=== PATIENT | female | born 1965 | race Caucasian/White ===

== ENCOUNTER → 2019-05-10 | Outpatient (CLI) | payer BC ==
[2019-05-10 14:30] VITALS: BP 143/71; PULSE 55; TEMP 99; BMI 29.4
--- NOTE | 2019-05-10 14:55 | P.HPBAR ---
Bariatric H&P - History & Physicial H&P Date: 05/10/19 History & Physicial: Visit/CC: ANNUAL F/U, HAVING ISSUES WITH BLOATING AND FOOD GETTING STUCK Patient initial contact: Initial weight: 136.078 kg Initial weight in pounds: 300.00 Height: 5 ft 7 in Initial BMI: 47.0 Last weight: Current weight: 85.275 kg Current weight in pounds: 188.00 Current BMI: 29.4 [place] body weight (based on NIH guidelines): 61.235 kg Excess body weight loss: 67.8% The patient is a 53 year-old F who presents for Bariatric Assessment. HPI: She has a gastric bypass [address] Keller. She was 300 pounds. Lowest weight 142 pounds. She reports left upper quadrant pain. She had an iron infusion. She reports mesh was around her pouch and was removed. She reports bile. Her gallbladder is gone. Food occassiionally gets stuck. She reports trouble. She reports getting a revision in [place], [place]. No further reports of diarrhea. She reports constipation. She Sjogren's now. Hgb A1c 9.4 She was done in [place]. PLAN: 1. Recommend trim technician 2. EGD 3. Labs Past Medical History Past Medical History: Diabetes Mellitus, Deep Vein Thrombosis (DVT), Eye Disorder, GERD/Reflux, Liver Disease, Neurologic Disorder, Pulmonary Embolus (PE), Renal Disease Additional Past Medical History / Comment(s): Low Iron, Low B12, arthritis worse in feet and toes , goiters, nodules on neck, glaucoma bilaterally, bilateral PE 2013, Kidney stones, neuropathy in bilateral feet, torn Right achilles (wears brace), sjogrens Disease History of Any Multi-Drug Resistant Organisms: MRSA Year Discovered:: 2004 MDRO Source:: abdomen Past Surgical History: Bariatric Surgery, Section, Cholecystectomy, Heart Catheterization, Orthopedic Surgery Additional Past Surgical History / Comment(s): RYGB [address] Keller at [facility] (went to gastrectomy 2004 at [facility]), left shoulder, Tubal Ligation, panniculectomy, kidney stones Past Anesthesia/Blood Transfusion Reactions: Previous Problems w/ Anesthesia, Postoperative Nausea & Vomiting (PONV) Past Psychological History: Anxiety Smoking Status: Never smoker Past Alcohol Use History: Rare Past Drug Use History: None Reported Surgical - Exam Vital Signs Temp Pulse BP 99 F 55 L 143/71 05/10/19 14:23 05/10/19 14:23 05/10/19 14:23 Bariatric Checklist Checklist: Plan: Checklist: EGD: 1. Hiatal hernia: 2. H. Pylori: HgbA1c: Vitamin D: Smoking: Never smoker Primary care physician referral: [facility] ([place]) Psychiatry clearance: Cardiology clearance: Sleep study: Diet journal: VTE risk score: VTE risk level: Rehab needs at discharge:
== END ==
LOC: BARWHC3 13:58
PROVIDERS: ATTEND Surgery Plastic and Reconstructive Surgery
DX: R10.11 Right upper quadrant pain (principal); K59.00 Constipation, unspecified; Z98.84 Bariatric surgery status
CPT/HCPCS: 99211

== ENCOUNTER 2019-05-29 09:31 | Day surgery (SDC) | payer BC ==
[2019-05-25 10:18] VITALS: BMI 28.1
--- NOTE | 2019-05-29 06:14 | P.GSHP ---
History of Present Illness H&P Date: 05/29/19 CHIEF COMPLAINT: GERD HISTORY OF PRESENT ILLNESS: The patient is a 53-year-old female who presents reports gastroesophageal reflux disease. Upper endoscopy was offered for further evaluation and management. PAST MEDICAL HISTORY: Please see list. PAST SURGICAL HISTORY: Please see list. MEDICATIONS: Please see list. ALLERGIES: Please see list. SOCIAL HISTORY: No illicit drug use FAMILY HISTORY: No reports of Crohn disease or ulcerative colitis. REVIEW OF ORGAN SYSTEMS: CONSTITUTIONAL: No reports of fevers or chills. GI: Denies any blood in stools or constipation. PHYSICAL EXAM: VITAL SIGNS: Stable GENERAL: Well-developed and pleasant in no acute distress. HEENT: No scleral icterus. Extraocular movements grossly intact. Moist buccal mucosa. NECK: Supple without lymphadenopathy. CHEST: Unlabored respirations. Equal bilateral excursions. CARDIOVASCULAR: Regular rate and rhythm. Distal 2+ pulses. ABDOMEN: Soft, nondistended. MUSCULOSKELETAL: No clubbing, cyanosis, or edema. ASSESSMENT: 1. Gastroesophageal reflux disease PLAN: 1. Recommend proceeding with an upper endoscopy Past Medical History Past Medical History: Diabetes Mellitus, Deep Vein Thrombosis (DVT), Eye Disorder, GERD/Reflux, Liver Disease, Neurologic Disorder, Pulmonary Embolus (PE), Renal Disease Additional Past Medical History / Comment(s): Low Iron-recent iron infusion, Low B12, arthritis worse in feet and toes , goiters, nodules on neck, glaucoma bilaterally, bilateral PE 2013, Kidney stones, neuropathy in bilateral feet, torn Right achilles (wears brace), sjogrens, nausea & dysphagia @times History of Any Multi-Drug Resistant Organisms: MRSA Date of last positivie culture/infection: 2004 MDRO Source:: abdomen Past Surgical History: Bariatric Surgery, Section, Cholecystectomy, Heart Catheterization, Orthopedic Surgery, Tubal Ligation Additional Past Surgical History / Comment(s): RYGB [address] Keller at [facility] (went to gastrectomy 2004 at [facility]), left shoulder, Tubal Ligation, panniculectomy, kidney stones Past Anesthesia/Blood Transfusion Reactions: Previous Problems w/ Anesthesia, Postoperative Nausea & Vomiting (PONV) Additional Past Anesthesia/Blood Transfusion Reaction / Comment(s): sometimes BP gets low w/anesthesia Smoking Status: Never smoker Medications and Allergies Home Medications Medication Instructions Recorded Confirmed Type Bisacodyl [Dulcolax] 10 mg RECTAL HS PRN 02/19/20 03/05/20 History Cholecalciferol [Vitamin D3 (25 3,000 unit PO DAILY 05/10/19 05/25/19 History Mcg = 1000 Iu)] Clobetasol Propionate [Temovate 1 applic TOPICAL DAILY 05/10/19 05/25/19 History 0.05% Cream] Cyanocobalamin/Cobamamide [Vitamin 5,000 mg SL DAILY 05/10/19 05/25/19 History B-12 5,000 Mcg Tab Sl] DULoxetine HCL [Cymbalta] 30 mg PO DAILY 05/10/19 05/25/19 History Estrogens, Conjugated Cream 1 applicator VAGINAL DAILY 05/10/19 05/25/19 History [Premarin Cream] Hydroxychloroquine Sulfate 200 mg PO BID 05/10/19 05/25/19 History [Plaquenil] Insulin Glargine [Lantus] 14 unit SQ HS 05/10/19 05/25/19 History Insulin Glargine [Lantus] 24 units SQ AC-BRKFST 05/10/19 05/25/19 History Methotrexate/Pf [Rasuvo 30 mg/0.6 30 mg SQ WEEKLY 05/10/19 05/25/19 History ml Autoinj] cycloSPORINE [Restasis] 1 applicator BOTH EYES BID 05/10/19 05/25/19 History hydrOXYzine HCL [Atarax] 25 mg PO TID PRN 05/10/19 05/25/19 History Allergies Allergy/AdvReac Type Severity Reaction Status Date / Time acetaminophen Allergy Unknown Verified 05/25/19 10:09 [From Darvocet-N] meperidine HCl [From Demerol] Allergy Unknown Verified 05/25/19 10:09 propoxyphene napsylate Allergy Unknown Verified 05/25/19 10:09 [From Darvocet-N] sulfamethoxazole Allergy Unknown Verified 05/25/19 10:09 [From Bactrim] trimethoprim [From Bactrim] Allergy Unknown Verified 05/25/19 10:09
[~2019-05-29 09:31] MED LIST: LACTATED RINGERS 1,000 ML IV SCH
[2019-05-29 09:57] VITALS: RESP 16; TEMP 97.5
[2019-05-29] MEDS ORDERED: LIDOCAINE 1% (10MG/ML) FOR IV START INTRADERMA ONE (09:58)
[2019-05-29 10:00] LABS: Glucose,Whole Blood 165 mg/dL (75-99)
[2019-05-29] MEDS ORDERED: PROPOFOL 10 MG/ML 20 ML VIAL IV ONE (11:54)
[2019-05-29] MEDS ORDERED: LIDOCAINE 1% INJ 10MG/ML (20 ML MDV) ONE (11:54)
[2019-05-29] MEDS ORDERED: SODIUM CHLORIDE 0.9% 500 ML 500 ML IV ONE ×2 (12:05)
--- NOTE | 2019-05-29 12:21 | P.PCN ---
Date of Procedure: 05/29/19 Description of Procedure: PREOPERATIVE DIAGNOSIS: Dysphagia. s/p Chip-en-y gastric bypass. Nausea with vomiting. Morbid obesity. Diabetes type 2. POSTOPERATIVE DIAGNOSIS: Dysphagia. s/p Chip-en-y esophagojejunostomy Nausea with vomiting. Morbid obesity. Diabetes type 2. Esophageal stricture OPERATION: Esophagojejunoscopy with balloon dilatation from 12 to 20 mm. SURGEON: Kiersten Erickson MD ANESTHESIA: MAC. INDICATIONS: The patient is a 53-year-old female who presents with a history of dysphagia, gastric bypass including nausea and vomiting. Benefits and risks of the procedure were described. Informed consent was obtained. DESCRIPTION: The patient was brought into the endoscopy suite and laid in the left lateral decubitus position. After a timeout was confirmed, the procedure was initiated. An Olympus gastroscope was passed along the posterior oropharynx down to the distal esophagus where the squamocolumnar junction was unremarkable. The jejunum was entered as no evidence of remnant gastric pouch was found. An esophageal stricture of 12 mm was found as the adult gastroscope was 9.5 mm in size. A [employer] balloon dilator was placed through the scope. Final insufflation up to 20 mm was performed with a total of 2 minutes. The scope was advanced up to 60 cm from the incisors into the Chip limb. The mucosa of the esophagojejunal anastomosis was intact. No chronic marginal ulcer was encountered. No full-thickness injury was encountered. The GI tract was desufflated. The patient tolerated the procedure well. FINDINGS: Squamocolumnar junction unremarkable at 37 cm. Stricture of approximately 12 mm encountered. No esophago-jejunal ulceration encountered. Successful balloon dilatation to 20 mm. RECOMMENDATIONS: Recommend omeprazole secondary to history of caustic agents Plan - Discharge Summary Discharge Rx Participant: No New Discharge Prescriptions: New Omeprazole [PriLOSEC] 30 mg PO DAILY #14 cap Continue cycloSPORINE [Restasis] 1 applicator BOTH EYES BID Insulin Glargine [Lantus] 14 unit SQ HS Estrogens, Conjugated Cream [Premarin Cream] 1 applicator VAGINAL DAILY Bisacodyl [Dulcolax] 10 mg RECTAL HS PRN PRN Reason: Constipation hydrOXYzine HCL [Atarax] 25 mg PO TID PRN PRN Reason: Itching Hydroxychloroquine Sulfate [Plaquenil] 200 mg PO BID DULoxetine HCL [Cymbalta] 30 mg PO DAILY Cholecalciferol [Vitamin D3 (25 Mcg = 1000 Iu)] 3,000 unit PO DAILY Cyanocobalamin/Cobamamide [Vitamin B-12 5,000 Mcg Tab Sl] 5,000 mg SL DAILY Clobetasol Propionate [Temovate 0.05% Cream] 1 applic TOPICAL DAILY Methotrexate/Pf [Rasuvo 30 mg/0.6 ml Autoinj] 30 mg SQ WEEKLY Insulin Glargine [Lantus] 24 units SQ AC-BRKFST Discharge Medication List Bisacodyl [Dulcolax] 10 mg RECTAL HS PRN 05/10/19 [History] Cholecalciferol [Vitamin D3 (25 Mcg = 1000 Iu)] 3,000 unit PO DAILY 05/10/19 [History] Clobetasol Propionate [Temovate 0.05% Cream] 1 applic TOPICAL DAILY 05/10/19 [History] Cyanocobalamin/Cobamamide [Vitamin B-12 5,000 Mcg Tab Sl] 5,000 mg SL DAILY 05/10/19 [History] DULoxetine HCL [Cymbalta] 30 mg PO DAILY 05/10/19 [History] Estrogens, Conjugated Cream [Premarin Cream] 1 applicator VAGINAL DAILY 05/10/19 [History] Hydroxychloroquine Sulfate [Plaquenil] 200 mg PO BID 05/10/19 [History] Insulin Glargine [Lantus] 14 unit SQ HS 05/10/19 [History] Insulin Glargine [Lantus] 24 units SQ AC-BRKFST 05/10/19 [History] Methotrexate/Pf [Rasuvo 30 mg/0.6 ml Autoinj] 30 mg SQ WEEKLY 05/10/19 [History] cycloSPORINE [Restasis] 1 applicator BOTH EYES BID 05/10/19 [History] hydrOXYzine HCL [Atarax] 25 mg PO TID PRN 05/10/19 [History] Omeprazole [PriLOSEC] 30 mg PO DAILY #14 cap 05/29/19 [Rx] Follow up [facility]ment(s[facility]Ref[facility] [facility] [place] [place] [facility] [place] [facility] Patient Instructions/Handouts: Esophageal Dilation (DC) Activity/Diet/Wound Care/Special Instructions: Liquid diet today. Regular diet tomorrow. Discharge Disposition: HOME SELF-CARE
[2019-05-29 12:32] VITALS: BP 128/76; PULSE 73
== END 2019-05-29 12:54 | disposition home or self-care (01) ==
LOC: ORWHC2ENDO 09:31
PROVIDERS: ATTEND Surgery Plastic and Reconstructive Surgery
DX: K22.2 Esophageal obstruction (principal); E66.01 Morbid (severe) obesity due to excess calories; Z98.84 Bariatric surgery status; Z86.14 Personal history of Methicillin resistant Staphylococcus aureus infection; Z88.5 Allergy status to narcotic agent; Z88.2 Allergy status to sulfonamides; K21.9 Gastro-esophageal reflux disease without esophagitis; Z86.718 Personal history of other venous thrombosis and embolism; H40.9 Unspecified glaucoma; Z87.19 Personal history of other diseases of the digestive system; Z86.69 Personal history of other diseases of the nervous system and sense organs; Z86.711 Personal history of pulmonary embolism; D50.9 Iron deficiency anemia, unspecified; E53.8 Deficiency of other specified B group vitamins; M19.072 Primary osteoarthritis, left ankle and foot; M19.071 Primary osteoarthritis, right ankle and foot; E04.9 Nontoxic goiter, unspecified; Z87.442 Personal history of urinary calculi; E11.42 Type 2 diabetes mellitus with diabetic polyneuropathy; S86.011D Strain of right Achilles tendon, subsequent encounter; M35.00 Sjogren syndrome, unspecified; Z98.890 Other specified postprocedural states; Z90.49 Acquired absence of other specified parts of digestive tract; Z98.51 Tubal ligation status; Z91.89 Other specified personal risk factors, not elsewhere classified; Z87.898 Personal history of other specified conditions; Z79.899 Other long term (current) drug therapy; Z79.52 Long term (current) use of systemic steroids; Z79.890 Hormone replacement therapy; Z79.4 Long term (current) use of insulin; Z68.28 Body mass index [BMI] 28.0-28.9, adult; X58.XXXD Exposure to other specified factors, subsequent encounter
CPT/HCPCS: 43249; J2001; J2704; C1726

== ENCOUNTER → 2019-05-29 | Outpatient (CLI) | payer BC ==
[2019-05-29 13:36] LABS: Anisocytosis Moderate; HCT 35.5 % (34.0-46.0); HGB 10.9 gm/dL (11.4-16.0); Hypochromasia Moderate; MCH 26.7 pg (25.0-35.0); MCHC 30.8 g/dL (31.0-37.0); MCV 86.7 fL (80.0-100.0); Macrocytosis Slight; Mean Platelet Volume 7.5; Platelet Count 257 k/uL (150-450); RBC 4.09 m/uL (3.80-5.40); RDW 23.6 % (11.5-15.5); WBC 6.1 k/uL (3.8-10.6)
[2019-05-29 13:52] LABS: INR 0.9 (<1.2); Prothrombin Time 9.6 sec (9.0-12.0)
[2019-05-29 13:55] LABS: Partial Thromboplastin Time 20.5 sec (22.0-30.0)
[2019-05-29 20:19] LABS: African American GFR (CKD) 97.6 (60.0-200.0); Albumin 4.4 g/dL (3.80-4.90); Albumin/Globulin Ratio 2.2 (1.60-3.17); Anion Gap 3.4 mmol/L (4.00-12.00); BUN/Creat Ratio 11.25 Ratio (12.00-20.00); Calcium 9.2 mg/dL (8.7-10.3); Carbon Dioxide 27.6 mmol/L (21.6-31.8); Chol/HDL Ratio 2.45; Ferritin 779.4 ng/mL (10.0-291.0); Folate, Serum 17.9 ng/mL; LDL Cholesterol,Calculated 100.2 mg/dL (0.0-131.0); Non-African American GFR(CKD) 84.2 (60.0-200.0); Phosphorus 2.5 mg/dL (2.4-5.1); Potassium 4.2 mmol/L (3.5-5.5); Total Bilirubin 0.4 mg/dL (0.3-1.2); Total Protein 6.4 g/dL (6.2-8.2); VLDL Calculation 18.8 mg/dL (5.00-40.00)
[2019-05-29 20:20] LABS: % Iron Saturation 27.76 (12.00-45.00); Magnesium 1.6 mg/dL (1.5-2.4)
[2019-05-29 21:07] LABS: Hemoglobin A1C 8.5 % (4.0-6.0)
[2019-05-30 11:43] LABS: Zinc, Serum 69 ug/dL (60-130)
[2019-05-31 07:24] LABS: Vitamin A 30 ug/dL (38-106)
[2019-06-01 00:28] LABS: Selenium 86 mcg/L (63-160)
[2019-06-01 07:42] LABS: Vit B1(Thiamine) 60 ug/L (38-122)
== END ==
LOC: LABWHC1 13:13
PROVIDERS: ATTEND Surgery Plastic and Reconstructive Surgery
DX: E66.01 Morbid (severe) obesity due to excess calories (principal); E21.1 Secondary hyperparathyroidism, not elsewhere classified; E89.1 Postprocedural hypoinsulinemia; D50.9 Iron deficiency anemia, unspecified; E44.0 Moderate protein-calorie malnutrition; E55.9 Vitamin D deficiency, unspecified; K74.1 Hepatic sclerosis; N19 Unspecified kidney failure; K50.90 Crohn's disease, unspecified, without complications
CPT/HCPCS: 36415; 80053; 80061; 82306; 82525; 82607; 82728; 82746; 83036; 83540; 83550; 83735; 83970; 84100; 84134; 84255; 84425; 84443; 84590; 84630; 85027; 85610; 85730

== ENCOUNTER → 2020-02-05 | Outpatient (CLI) | payer BC ==
[2020-02-05 14:12] VITALS: BP 94/63; PULSE 92; RESP 20; TEMP 98.6
--- NOTE | 2020-02-05 14:29 | P.PAINCN ---
History of Present Illness - Reason for Consult Consult date: 02/05/20 - History of Present Illness This is a 54-year-old patient referred by Dr. Rolle with a chief complaint of chronic pain in her neck. For that she is a pain for quite some time however it has gotten worse in the last 8 months that she isn't working from home. Pain occasionally radiates into the shoulders left worse than right and she also endorses occasional numbness in her right hand. Pain since the pain can be described as sharp and stabbing but the pain in her hand is mostly numb and tingling. Any sort of lifting or physical activity makes the pain worse and resting makes the pain better. She noticed these today she has a tougher time holding her head up as her neck gets fatigued. Currently her pain is a 5 out of 10, at worse 9 and a 10, specifically 310. In regards to management she has had physical therapy, massage, and seen a chiropractor with no real help. She has tried gabapentin in the past which did not help much. She does have history of rheumatoid arthritis and diabetes. In regards to her rheumatoid arthritis she has taken cyclosporine and methotrexate and hydroxychloroquine, which she said helped with her pain in the past but the past 9 months has not been helpful at all. She does not endorse weakness in her arms at all. . Patient denies adverse drug effects from medications. Patient also denies new-onset weakness, bowel/bladder incontinence, or any other signs or symptoms of cauda equina syndrome. There are no signs of acute intoxication, and no indications of medication diversion or overuse. In addition to above, 13-point review of systems is also negative for chest pain, shortness of breath, changes in vision, changes in hearing, new onset weakness, abdominal pain, diarrhea, extreme fatigue, malaise, fever, skin changes, homicidal or suicidal ideation, or bowel or bladder incontinence. Physical exam: Vital Signs: Reviewed in EMR GENERAL: Well appearing, in no acute distress PSYCH: Mood and affect is appropriate. Awake, alert, and oriented SKIN: Skin color, texture, turgor normal, no rashes or lesions HEENT: Normocephalic, atraumatic. EOM intact CV: No pedal edema RESP: Respirations are unlabored, no audible wheezing GI: Abdomen non-distended MUSCULOSKELETAL: Bilateral upper and lower extremity strength is normal and symmetric. No atrophy or tone abnormalities are noted. Neck: Trigger points present over paraspinous muscles. Spurling negative, Axial Loading Test positive bilaterally, Reyes's sign negative. There is pain with neck flexion, extension, or lateral flexion. No obvious deformity or signs of trauma. Normal cervical lordotic curve and normal cervical spine range of motion Extremities: Peripheral joint ROM is full and pain free without obvious instability or laxity in all four extremities. No edema or skin discolorations noted. Gait: Gait is normal NEUR: Bilateral upper and lower extremity coordination and muscle stretch reflexes are physiologic and symmetric. Negative clonus. No loss of sensation is noted. Cranial nerves are grossly intact. Imaging: Cervical MRI 12/2019 C2 through C3: No disc bulge. Minimal left facet arthropathy. No neural foraminal or spinal canal stenosis. C3-C4 tiny central canal protrusion minimally flattening spinal cord. Borderline spinal canal dimensions without stenosis. C4-C5 small central disc protrusion abuts the spinal cord at its ventral aspect without deformity. Borderline spinal canal dimensions without stenosis. Mild facet arthropathy. C5-C6 mild to moderate broad-based disc and osteophyte complex eccentric to the right. This abuts the spinal cord at its right ventral aspect without deformity. Mild ligamentum flavum hypertrophy. The result is mild spinal canal stenosis at this level. Mild to moderate right and mild left uncovertebral joint hypertrophy. C6-C7 and C7-T1 are normal. Assessment: 1. Cervical radiculopathy 2. Myofascial pain Plan: 1. Explanation: Diagnoses, prognoses, and multiple treatment options including but not limited to physical therapy, interventional therapies, medication management and surgery were discussed with the patient and all questions were answered to the patient's satisfaction. 2. Investigations: none 3. Counseling: The patient was counseled for 3 minutes on EXERCISE. Specifically, the patient was instructed regarding the importance of exercise in the context of both chronic pain and overall health. 4. Procedures: C7-T1 ILESI with left cervical trigger point injections. If these are not helpful Dr Rolle will consider ACDF 5. Consultations: None 6. Medications: None 7. Disposition: For procedure Past Medical History Past Medical History: Diabetes Mellitus, Deep Vein Thrombosis (DVT), Eye Disorder, GERD/Reflux, Liver Disease, Neurologic Disorder, Osteoarthritis (OA), Pulmonary Embolus (PE), Renal Disease, Rheumatoid Arthritis (RA) Additional Past Medical History / Comment(s): Low Iron-recent iron infusion, Low B12, arthritis worse in feet and toes, goiters, nodules on neck, glaucoma bilaterally, bilateral PE 2013, Kidney stones, neuropathy in bilateral feet, torn Right achilles, sjogrens, nausea & dysphagia @times History of Any Multi-Drug Resistant Organisms: MRSA Year Discovered:: 2004 MDRO Source:: abdomen incision Past Surgical History: Bariatric Surgery, Section, Cholecystectomy, Heart Catheterization, Orthopedic Surgery, Tubal Ligation Additional Past Surgical History / Comment(s): RYGB [address] Keller at [facility] (went to gastrectomy 2004 at [facility]), left shoulder, Tubal Ligation, panniculectomy, lithotripsy, and sx for kidney stones Past Anesthesia/Blood Transfusion Reactions: Previous Problems w/ Anesthesia, Postoperative Nausea & Vomiting (PONV) Additional Past Anesthesia/Blood Transfusion Reaction / Comm: sometimes BP gets low w/anesthesia Smoking Status: Never smoker Medications and Allergies Home Medications Medication Instructions Recorded Confirmed Type Cholecalciferol [Vitamin D3 (25 3,000 unit PO DAILY 05/10/19 02/02/20 History Mcg = 1000 Iu)] Clobetasol Propionate [Temovate 1 applic TOPICAL DAILY 05/10/19 02/02/20 History 0.05% Cream] Cyanocobalamin/Cobamamide [Vitamin 5,000 mg SL DAILY 05/10/19 02/02/20 History B-12 5,000 Mcg Tab Sl] DULoxetine HCL [Cymbalta] 30 mg PO DAILY 05/10/19 02/02/20 History Estrogens, Conjugated Cream 1 applicator VAGINAL DAILY 05/10/19 02/02/20 History [Premarin Cream] Hydroxychloroquine Sulfate 200 mg PO BID 05/10/19 02/02/20 History [Plaquenil] cycloSPORINE [Restasis] 1 applicator BOTH EYES BID 05/10/19 02/02/20 History Aspirin [Adult Low Dose Aspirin EC] 81 mg PO DAILY 02/02/20 02/02/20 History DULoxetine HCL [Cymbalta] 60 mg PO DAILY 02/02/20 02/02/20 History Insulin Aspart (For Pump) [NovoLOG 0.01 unit SQ-PUMP CONTINUOUS 02/02/20 02/02/20 History (For Pump)] Methotrexate 70 mg INJ TH 02/02/20 History Tafluprost/Pf [Zioptan 0.0015% Eye 1 drop BOTH EYES HS 02/02/20 02/02/20 History Drops] Vitamin A 1 tab PO DAILY 02/02/20 History Allergies Allergy/AdvReac Type Severity Reaction Status Date / Time meperidine HCl [From Demerol] Allergy Unknown Verified 02/02/20 15:00 propoxyphene napsylate Allergy Unknown Verified 02/02/20 15:00 [From Darvocet-N] sulfamethoxazole Allergy Rash/Hives Verified 02/02/20 15:00 [From Bactrim] trimethoprim [From Bactrim] Allergy Rash/Hives Verified 02/02/20 15:00 PQRS Measure Charge Sheet PQRS Narrative: Smoking Status Never smoker Pain Intensity [Neck] 8 Scale Used Numeric (1 - 10) Home Medications: Ambulatory Orders Cholecalciferol [Vitamin D3 (25 Mcg = 1000 Iu)] 3,000 unit PO DAILY 05/10/19 Clobetasol Propionate [Temovate 0.05% Cream] 1 applic TOPICAL DAILY 05/10/19 Cyanocobalamin/Cobamamide [Vitamin B-12 5,000 Mcg Tab Sl] 5,000 mg SL DAILY 05/10/19 DULoxetine HCL [Cymbalta] 30 mg PO DAILY 05/10/19 Estrogens, Conjugated Cream [Premarin Cream] 1 applicator VAGINAL DAILY 05/10/19 Hydroxychloroquine Sulfate [Plaquenil] 200 mg PO BID 05/10/19 cycloSPORINE [Restasis] 1 applicator BOTH EYES BID 05/10/19 Aspirin [Adult Low Dose Aspirin EC] 81 mg PO DAILY 02/02/20 DULoxetine HCL [Cymbalta] 60 mg PO DAILY 02/02/20 Insulin Aspart (For Pump) [NovoLOG (For Pump)] 0.01 unit SQ-PUMP CONTINUOUS 02/02/20 Methotrexate 70 mg INJ TH 02/02/20 Tafluprost/Pf [Zioptan 0.0015% Eye Drops] 1 drop BOTH EYES HS 02/02/20 Vitamin A 1 tab PO DAILY 02/02/20
== END | disposition home or self-care (01) ==
LOC: PNWHC3 13:55
PROVIDERS: ATTEND Anesthesiology
DX: M54.12 Radiculopathy, cervical region (principal); M79.18 Myalgia, other site; E11.9 Type 2 diabetes mellitus without complications; K21.9 Gastro-esophageal reflux disease without esophagitis; M06.9 Rheumatoid arthritis, unspecified; I82.409 Acute embolism and thrombosis of unspecified deep veins of unspecified lower extremity; Z79.891 Long term (current) use of opiate analgesic; Z79.899 Other long term (current) drug therapy; Z79.82 Long term (current) use of aspirin; Z79.4 Long term (current) use of insulin; Z88.8 Allergy status to other drugs, medicaments and biological substances; Z88.2 Allergy status to sulfonamides
CPT/HCPCS: 99211

== ENCOUNTER 2020-02-27 12:15 | Day surgery (SDC) | payer BC ==
[2020-02-23 15:59] VITALS: BMI 28.1
[2020-02-27 12:47] VITALS: TEMP 98.2
[2020-02-27] MEDS ORDERED: LIDOCAINE 1% (10MG/ML) FOR IV START INTRADERMA ONE (13:06)
[2020-02-27 13:07] LABS: Glucose,Whole Blood 119 mg/dL (75-99)
[2020-02-27] MEDS ORDERED: IOPAMIDOL M200 10 ML VIAL ONE (13:09)
[2020-02-27] MEDS ORDERED: DEXAMETHASONE SOD PHOSPHATE 10 MG/ML 1 ML VIAL ONE (13:09)
[2020-02-27] MEDS ORDERED: MIDAZOLAM 2 MG/2 ML VIAL ONE (13:09)
[2020-02-27] MEDS ORDERED: ROPIVACAINE 5MG/ML 20ML VIAL ONE (13:09)
[2020-02-27] MEDS ORDERED: IV FLUID CONTINUATION 1,000 ML IV ONE (13:26)
--- NOTE | 2020-02-27 13:26 | P.PCN ---
Date of Procedure: 02/27/20 Surgeon: Giovana Delacruz Pathology: none sent Condition: stable Disposition: PACU Description of Procedure: PROCEDURE 1. Cervical epidural steroid injection under fluoroscopic guidance, C7-T1 in the left paramedian approach. 2. Cervical epidurogram. :3. Trigger point injection in the cervical paravertebral musculature on the left side and left trapezius muscle PREOPERATIVE DIAGNOSIS: Cervical radiculopathy, cervical spondylosis without myelopathy, myofascial pain POSTOPERATIVE DIAGNOSIS: : Same as above ANESTHESIA: Local anesthesia with 1% lidocaine and IV moderate conscious sedation with Versed . EBL 0 PROCEDURE INDICATION: The patient with neck pain and radiculopathy unresponsive to conservative treatment consents for procedure. PROCEDURE DESCRIPTION / TECHNIQUE: The patient was seen and identified in the preoperative area. Risks, benefits, complications, including but not limited to infections ,bleeding , allergic reactions to the medications ,and not complete pain relief, and alternatives were discussed with the patient, the patient agreed to proceed with the procedure and signed the consent. Patient was taken to the OR and time out was completed. The patient was placed in the prone position on the procedure table. A pillow was placed under the patients chest to increase the flexion of the cervical spine . The cervical area was prepped and draped in the usual sterile fashion. Vital signs were closely monitored during the procedure. Conscious sedation was used during the procedure to decrease patients anxiety. Using anterior-posterior fluoroscopy, the C7-T1 interlaminar space was identified and the skin over this site was marked and then infiltrated with 1% lidocaine subcutaneously. Subsequently, a 20-gauge 3-1/2-inch Tuohy epidural needle was inserted and advanced toward the epidural space by means of loss of resistance to air technique and guided by AP and lateral fluoroscopy. The needle tip contacted the lamina of T1 vertebra first, then it was walked off bone and into the epidural space using the loss of to air and fluoroscopic guidance to identify the epidural space. The correct needle position in the epidural space was verified with the injection of 1 mL of the water soluble contrast dye Isovue and observing an excellent epidurogram with the epidural spread of the dye, after negative aspiration for blood and CSF and in the a bsence of paresthesias. Again after negative aspiration, a 2 ml mixture containing 10 mg of Decadron and 1 ml of preservative free Normal Saline solution was injected and a washout of epidurogram was seen. Needle was withdrawn intact, skin was cleansed, and bandages were applied. A copy of the needle placement picture was saved to the fluoroscopy machine. I then turned my attention into doing the trigger point injection in the left cervical paravertebral musculature and left trapezius muscle and left rhomboid muscle. I used 1-1/2 inch 25-gauge needle to inject 1 mL of ropivacaine 0.5% at each trigger point with a total of 5 trigger points injected. Patient tolerated procedure well
[2020-02-27 13:29] VITALS: RESP 18
[2020-02-27 13:42] VITALS: BP 111/73; PULSE 72
--- NOTE | 2020-02-27 14:32 | FL ---
Fluoroscopy INDICATION: Pain FINDINGS: Fluoroscopy time: 5 seconds. Images obtained: 1. IMPRESSIONS: 1. Documentation of fluoroscopy.
== END 2020-02-27 13:56 | disposition home or self-care (01) ==
LOC: ORPAIN 12:15
PROVIDERS: ATTEND Anesthesiology
DX: M47.22 Other spondylosis with radiculopathy, cervical region (principal); M79.18 Myalgia, other site; M06.9 Rheumatoid arthritis, unspecified; H40.9 Unspecified glaucoma; E11.9 Type 2 diabetes mellitus without complications; Z88.5 Allergy status to narcotic agent; Z88.2 Allergy status to sulfonamides; Z98.51 Tubal ligation status; Z78.0 Asymptomatic menopausal state; Z79.82 Long term (current) use of aspirin
CPT/HCPCS: 20553; 62321; J2250; J1100; Q9966; J2795

== ENCOUNTER 2020-06-03 18:22 | Emergency (ER) | payer BC ==
[2020-06-03 18:27] VITALS: RESP 18; TEMP 97.6
[2020-06-03] MEDS ORDERED: ONDANSETRON 4 MG/2 ML VIAL IVP STA (19:11)
[2020-06-03] MEDS ORDERED: MORPHINE SULFATE 4 MG/ML SYRINGE IV STA (19:11)
[2020-06-03] MEDS ORDERED: SODIUM CHLORIDE 0.9% 1,000 ML IV STA (19:11)
--- NOTE | 2020-06-03 19:22 | ED ---
Abdominal Pain HPI - General Chief Complaint: Abdominal Pain Stated Complaint: abd pain, swelling Time Seen by Provider: 06/03/20 18:57 Source: patient, RN notes reviewed Mode of arrival: ambulatory Limitations: no limitations - History of Present Illness Initial Comments: Patient is a 54-year-old female that presents to the emergency department complaining of left-sided abdominal pain with some bruising. She noted that she was at [facility] last night to get a food bolus removal from her esophagus. 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 She notes that they removed the food bolus and a computed tomography scan. She was discharged. She noted that today she noted that her left side of her abdomen was a little bit swollen there was a weird bruise-like pattern on her left upper quadrant and she was in significant pain. She'll that she was about 7-8 out of 10 constant with no relief. Patient is also having history of diabetes. She denied any chest pain shortness of breath headache vomiting diarrhea constipation fever fatigue chills. - Related Data Home Medications Medication Instructions Recorded Confirmed Hydroxychloroquine Sulfate 200 mg PO BID 05/10/19 06/03/20 [Plaquenil] cycloSPORINE [Restasis] 1 applicator BOTH EYES BID 05/10/19 06/03/20 DULoxetine HCL [Cymbalta] 60 mg PO DAILY 02/02/20 06/03/20 Insulin Aspart (For Pump) [NovoLOG 0.01 unit SQ-PUMP CONTINUOUS 02/02/20 06/03/20 (For Pump)] Methotrexate 70 mg INJ TH 02/02/20 06/03/20 Tafluprost/Pf [Zioptan 0.0015% Eye 1 drop BOTH EYES HS 02/02/20 06/03/20 Drops] Folic Acid 1 mg PO DAILY 02/23/20 06/03/20 Cevimeline [Evoxac] 30 mg PO DAILY 06/03/20 06/03/20 Cyanocobalamin (Vitamin B-12) 1,000 mcg PO DAILY 06/03/20 06/03/20 [Vitamin B-12] Allergies Allergy/AdvReac Type Severity Reaction Status Date / Time meperidine HCl [From Demerol] Allergy Unknown Verified 06/03/20 20:10 propoxyphene napsylate Allergy Unknown Verified 06/03/20 20:10 [From Darvocet-N] sulfamethoxazole Allergy Rash/Hives Verified 06/03/20 20:10 [From Bactrim] trimethoprim [From Bactrim] Allergy Rash/Hives Verified 06/03/20 20:10 Review of Systems ROS Statement: Those systems with pertinent positive or pertinent negative responses have been documented in the HPI. ROS Other: All systems not noted in ROS Statement are negative. Past Medical History Past Medical History: Diabetes Mellitus, Deep Vein Thrombosis (DVT), Eye Disorder, GERD/Reflux, Liver Disease, Neurologic Disorder, Osteoarthritis (OA), Pulmonary Embolus (PE), Renal Disease, Rheumatoid Arthritis (RA) Additional Past Medical History / Comment(s): Low Iron-recent iron infusion, Low B12, arthritis worse in feet and toes, goiters, nodules on neck, glaucoma bilaterally, bilateral PE 2013, Kidney stones, neuropathy in bilateral feet, torn Right achilles, sjogrens, nausea & dysphagia @times History of Any Multi-Drug Resistant Organisms: MRSA Date of last positivie culture/infection: 2004 MDRO Source:: abdomen incision Past Surgical History: Bariatric Surgery, Section, Cholecystectomy, Heart Catheterization, Orthopedic Surgery, Tubal Ligation Additional Past Surgical History / Comment(s): RYGB [address] Keller at [facility] (went to gastrectomy 2004 at [facility]), left shoulder, Tubal Ligation, panniculectomy, lithotripsy, and sx for kidney stones Past Anesthesia/Blood Transfusion Reactions: Previous Problems w/ Anesthesia, Postoperative Nausea & Vomiting (PONV) Additional Past Anesthesia/Blood Transfusion Reaction / Comment(s): sometimes BP gets low w/anesthesia Past Psychological History: Anxiety Smoking Status: Never smoker Past Alcohol Use History: None Reported Past Drug Use History: None Reported General Exam Limitations: no limitations General appearance: alert, in no apparent distress Head exam: Present: atraumatic, normocephalic, normal inspection Eye exam: Present: normal appearance, PERRL, EOMI. Absent: scleral icterus, conjunctival injection, periorbital swelling ENT exam: Present: normal exam, mucous membranes moist Neck exam: Present: normal inspection. Absent: tenderness, meningismus, lymphadenopathy Respiratory exam: Present: normal lung sounds bilaterally. Absent: respiratory distress, wheezes, rales, rhonchi, stridor Cardiovascular Exam: Present: regular rate, normal rhythm, normal heart sounds. Absent: systolic murmur, diastolic murmur, rubs, gallop, clicks GI/Abdominal exam: Present: soft, tenderness (Generalized left side), normal bowel sounds, other (Ecchymotic bruise in the left upper quadrant, patient states it is new as of today.). Absent: distended, guarding, rebound, rigid Extremities exam: Present: normal inspection, full ROM, normal capillary refill. Absent: tenderness, pedal edema, joint swelling, calf tenderness Back exam: Present: normal inspection Neurological exam: Present: alert, oriented X3, CN II-XII intact Psychiatric exam: Present: normal affect, normal mood Skin exam: Present: warm, dry, intact, normal color. Absent: rash Course Vital Signs 06/03/20 18:24 Temperature 97.6 F Pulse Rate 60 Respiratory 18 Rate Blood Pressure 154/71 O2 Sat by Pulse 99 Oximetry Medical Decision Making - Medical Decision Making 54-year-old male complaining of left-sided abdominal pain and swelling and bruising. Labs, computed tomography scan of the abdomen and pelvis, 4 mg of morphine, 4 mg Zofran, 1 L normal saline ordered. White blood cells 10.7, rest of labs unremarkable. CT negative for any acute process. Case discussed with Dr. Villanueva, patient discharged home with conservative management. - Lab Data Result diagrams: 06/03/20 20:37 06/03/20 20:37 Lab Results 06/03/20 06/03/20 06/03/20 Range/Units 20:37 20:37 20:37 WBC 10.7 H (3.8-10.6) k/uL RBC 4.68 (3.80-5.40) m/uL Hgb 14.5 (11.4-16.0) gm/dL Hct 43.9 (34.0-46.0) % MCV 93.7 (80.0-100.0) fL MCH 30.9 (25.0-35.0) pg MCHC 33.0 (31.0-37.0) g/dL RDW 13.0 (11.5-15.5) % Plt Count 263 (150-450) k/uL MPV 7.6 Neutrophils % 55 % Lymphocytes % 36 % Monocytes % 6 % Eosinophils % 1 % Basophils % 1 % Neutrophils # 5.9 (1.3-7.7) k/uL Lymphocytes # 3.8 (1.0-4.8) k/uL Monocytes # 0.6 (0-1.0) k/uL Eosinophils # 0.1 (0-0.7) k/uL Basophils # 0.1 (0-0.2) k/uL PT 10.1 (9.0-12.0) sec INR 0.9 (<1.2) APTT 19.9 L (22.0-30.0) sec Sodium 143 (137-145) mmol/L Potassium 3.7 (3.5-5.1) mmol/L Chloride 105 (98-107) mmol/L Carbon Dioxide 29 (22-30) mmol/L Anion Gap 9 mmol/L BUN 14 (7-17) mg/dL Creatinine 0.98 (0.52-1.04) mg/dL Est GFR (CKD-EPI)AfAm 76 (>60 ml/min/1.73 sqM) Est GFR (CKD-EPI)NonAf 66 (>60 ml/min/1.73 sqM) Glucose 149 H (74-99) mg/dL Plasma Lactic Acid Delvis (0.7-2.0) mmol/L Calcium 10.2 (8.4-10.2) mg/dL Total Bilirubin 0.6 (0.2-1.3) mg/dL AST 37 H (14-36) U/L ALT 30 (4-34) U/L Alkaline Phosphatase 155 H (38-126) U/L Total Protein 7.5 (6.3-8.2) g/dL Albumin 4.8 (3.5-5.0) g/dL Amylase 50 (30-110) U/L Lipase 38 (23-300) U/L 06/03/20 Range/Units 20:37 WBC (3.8-10.6) k/uL RBC (3.80-5.40) m/uL Hgb (11.4-16.0) gm/dL Hct (34.0-46.0) % MCV (80.0-100.0) fL MCH (25.0-35.0) pg MCHC (31.0-37.0) g/dL RDW (11.5-15.5) % Plt Count (150-450) k/uL MPV Neutrophils % % Lymphocytes % % Monocytes % % Eosinophils % % Basophils % % Neutrophils # (1.3-7.7) k/uL Lymphocytes # (1.0-4.8) k/uL Monocytes # (0-1.0) k/uL Eosinophils # (0-0.7) k/uL Basophils # (0-0.2) k/uL PT (9.0-12.0) sec INR (<1.2) APTT (22.0-30.0) sec Sodium (137-145) mmol/L Potassium (3.5-5.1) mmol/L Chloride (98-107) mmol/L Carbon Dioxide (22-30) mmol/L Anion Gap mmol/L BUN (7-17) mg/dL Creatinine (0.52-1.04) mg/dL Est GFR (CKD-EPI)AfAm (>60 ml/min/1.73 sqM) Est GFR (CKD-EPI)NonAf (>60 ml/min/1.73 sqM) Glucose (74-99) mg/dL Plasma Lactic Acid Delvis 1.5 (0.7-2.0) mmol/L Calcium (8.4-10.2) mg/dL Total Bilirubin (0.2-1.3) mg/dL AST (14-36) U/L ALT (4-34) U/L Alkaline Phosphatase (38-126) U/L Total Protein (6.3-8.2) g/dL Albumin (3.5-5.0) g/dL Amylase (30-110) U/L Lipase (23-300) U/L - Radiology Data Radiology results: report reviewed, image reviewed CT of the abdomen and pelvis. There is mild fatty infiltration of the liver. No acute abnormality of the abdomen and pelvis. Nonobstructing small renal calculi. Disposition Clinical Impression: Abdominal pain Disposition: HOME SELF-CARE Condition: Stable Instructions (If sedation given, give patient instructions): Abdominal Pain (ED) Additional Instructions: Please return to the Emergency Department if symptoms worsen or any other concerns. Follow-up with primary care in 2-4 days. Monitor left side of abdomen for worsening of bruising. Take [id number] pain medications as needed for symptom control. Is patient prescribed a controlled substance at d/c from ED?: No Referrals: Garth Blackburn MD [Primary Care Provider] - 1-2 days Time of Disposition: 22:42
[2020-06-03 20:52] LABS: Basophils # (A) 0.1 k/uL (0-0.2); Basophils % (A) 1 %; Eosinophils # (A) 0.1 k/uL (0-0.7); Eosinophils % (A) 1 %; HCT 43.9 % (34.0-46.0); HGB 14.5 gm/dL (11.4-16.0); Lymphocytes # (A) 3.8 k/uL (1.0-4.8); Lymphocytes % (A) 36 %; MCH 30.9 pg (25.0-35.0); MCV 93.7 fL (80.0-100.0); Mean Platelet Volume 7.6; Monocytes # (A) 0.6 k/uL (0-1.0); Monocytes % (A) 6 %; Neutrophils # (A) 5.9 k/uL (1.3-7.7); Neutrophils % (A) 55 %; Platelet Count 263 k/uL (150-450); RBC 4.68 m/uL (3.80-5.40); WBC 10.7 k/uL (3.8-10.6)
[2020-06-03 21:03] LABS: Albumin 4.8 g/dL (3.5-5.0); Calcium 10.2 mg/dL (8.4-10.2); Total Bilirubin 0.6 mg/dL (0.2-1.3); Total Protein 7.5 g/dL (6.3-8.2)
[2020-06-03 21:08] LABS: INR 0.9 (<1.2); Potassium 3.7 mmol/L (3.5-5.1); Prothrombin Time 10.1 sec (9.0-12.0)
[2020-06-03 21:16] LABS: Partial Thromboplastin Time 19.9 sec (22.0-30.0)
--- NOTE | 2020-06-03 22:16 | CT ---
EXAMINATION TYPE: CT abdomen pelvis w con DATE OF EXAM: 06/03/2020 COMPARISON: None HISTORY: Abdominal pain CT DLP: 990.7 mGycm Automated exposure control for dose reduction was used. CONTRAST: Performed with IV Contrast, patient injected with 100 mL of Isovue 300. Images obtained from the diaphragm to the floor the pelvis with IV contrast. There is some mild atelectasis at the lung bases. Heart size is normal. There is no pericardial effus ion. There is some fatty infiltration of the liver. Spleen is intact. There is no pancreatic mass. There i s small hiatal hernia. There appears to be clips at the gastroesophageal junction. There is apparent gastric bariatric surgery. The bile ducts are not dilated. There are clips from cholecystectomy. There is no adrenal mass. Kidneys show satisfactory contrast opacification. There is no hydronephrosi s. Ureters are not dilated. There is no retroperitoneal adenopathy. Bladder distends smoothly. There is no inguinal hernia. There is no free fluid in the pelvis. There is 2 mm calculus upper pole left k idney. There is probably 2 mm calculus lateral right kidney. Delayed images show normal renal excretion. Uterus is anteverted. There is no evidence of pelvic mass. There are sutures in the anterior midline abdomen. Appendix is not definitely seen. There is no sign of thickened appendix. There is no mesenteric edema. There is no ascites or free air. There is no sign of a bowel obstructio n. Lumbar vertebra have normal spacing and alignment. Posterior elements are intact. The bony pelvis is intact. The hip joints appear intact. There is no hip dysplasia. IMPRESSION: There is mild fatty infiltration of the liver. No acute abnormality of the abdomen pelvis. Nonobstruc ting small renal calculi.
[2020-06-03 23:02] VITALS: BP 142/70; PULSE 76
== END 2020-06-03 23:02 | disposition home or self-care (01) ==
LOC: EC 18:22
DX: R10.9 Unspecified abdominal pain (principal); F41.9 Anxiety disorder, unspecified; E11.9 Type 2 diabetes mellitus without complications; K21.9 Gastro-esophageal reflux disease without esophagitis; Z86.718 Personal history of other venous thrombosis and embolism; M19.90 Unspecified osteoarthritis, unspecified site
CPT/HCPCS: 36415; 80053; 82150; 83605; 83690; 85025; 85610; 85730; 74177; 99284; 96374; 96375; 96361; J2270; J2405; Q9967

== ENCOUNTER 2022-06-02 11:23 | Observation (INO) | payer BC ==
[2022-06-02] MEDS ORDERED: PANTOPRAZOLE 40 MG/10 ML VIAL IVP STA (13:40)
[2022-06-02] MEDS ORDERED: SODIUM CHLORIDE 0.9% 1,000 ML IV STA (13:40)
--- NOTE | 2022-06-02 13:42 | ED ---
General Adult HPI - General Chief complaint: Abdominal Pain Stated complaint: HARD TIME SWALLOWING Time Seen by Provider: 06/02/22 13:25 Source: patient, RN notes reviewed Mode of arrival: ambulatory Limitations: no limitations - History of Present Illness Initial comments: Patient is a pleasant 56-year-old female presenting to the emergency department with difficulty swallowing. Onset of symptoms was 2 days ago. Patient has had similar symptoms a couple of times previously needing endoscopy secondary to stricture. Patient does have history of gastric bypass surgery [address] Keller. Patient is only able to tolerate minimal water, less than half ounce. Not able to tolerate solid foods. No abdominal pain. - Related Data Home Medications Medication Instructions Recorded Confirmed Hydroxychloroquine Sulfate 200 mg PO BID 05/10/19 06/03/20 [Plaquenil] cycloSPORINE [Restasis] 1 applicator BOTH EYES BID 05/10/19 06/03/20 DULoxetine HCL [Cymbalta] 60 mg PO DAILY 02/02/20 06/03/20 Insulin Aspart (For Pump) [NovoLOG 0.01 unit SQ-PUMP CONTINUOUS 02/02/20 06/03/20 (For Pump)] Methotrexate 70 mg INJ TH 02/02/20 06/03/20 Tafluprost/Pf [Zioptan 0.0015% Eye 1 drop BOTH EYES HS 02/02/20 06/03/20 Drops] Folic Acid 1 mg PO DAILY 02/23/20 06/03/20 Cevimeline [Evoxac] 30 mg PO DAILY 06/03/20 06/03/20 Cyanocobalamin (Vitamin B-12) 1,000 mcg PO DAILY 06/03/20 06/03/20 [Vitamin B-12] Allergies Allergy/AdvReac Type Severity Reaction Status Date / Time meperidine HCl [From Demerol] Allergy Unknown Verified 06/03/20 20:10 propoxyphene napsylate Allergy Unknown Verified 06/03/20 20:10 [From Darvocet-N] sulfamethoxazole Allergy Rash/Hives Verified 06/03/20 20:10 [From Bactrim] trimethoprim [From Bactrim] Allergy Rash/Hives Verified 06/03/20 20:10 Review of Systems ROS Statement: Those systems with pertinent positive or pertinent negative responses have been documented in the HPI. ROS Other: All systems not noted in ROS Statement are negative. Constitutional: Denies: fever Eyes: Denies: eye pain ENT: Denies: ear pain Respiratory: Denies: cough, dyspnea Cardiovascular: Denies: chest pain Endocrine: Denies: fatigue Gastrointestinal: Denies: abdominal pain Genitourinary: Denies: dysuria Musculoskeletal: Denies: arthralgia Skin: Denies: rash Neurological: Denies: weakness Past Medical History Past Medical History: Diabetes Mellitus, Deep Vein Thrombosis (DVT), Eye Disorder, GERD/Reflux, Liver Disease, Neurologic Disorder, Osteoarthritis (OA), Pulmonary Embolus (PE), Renal Disease, Rheumatoid Arthritis (RA) Additional Past Medical History / Comment(s): Low Iron-recent iron infusion, Low B12, arthritis worse in feet and toes, goiters, nodules on neck, glaucoma bilaterally, bilateral PE 2013, Kidney stones, neuropathy in bilateral feet, torn Right achilles, sjogrens, nausea & dysphagia @times History of Any Multi-Drug Resistant Organisms: MRSA Date of last positivie culture/infection: 2004 MDRO Source:: abdomen incision Past Surgical History: Bariatric Surgery, Section, Cholecystectomy, Heart Catheterization, Orthopedic Surgery, Tubal Ligation Additional Past Surgical History / Comment(s): RYGB [address] Keller at [facility] (went to gastrectomy 2004 at [facility]), left shoulder, Tubal Ligation, panniculectomy, lithotripsy, and sx for kidney stones, Past Anesthesia/Blood Transfusion Reactions: Previous Problems w/ Anesthesia, Postoperative Nausea & Vomiting (PONV) Additional Past Anesthesia/Blood Transfusion Reaction / Comment(s): sometimes BP gets low w/anesthesia Past Psychological History: Anxiety Smoking Status: Never smoker Past Alcohol Use History: None Reported Past Drug Use History: None Reported General Exam Limitations: no limitations General appearance: alert, in no apparent distress Head exam: Present: normocephalic Eye exam: Present: normal appearance Neck exam: Present: normal inspection Respiratory exam: Present: normal lung sounds bilaterally Cardiovascular Exam: Present: regular rate, normal rhythm GI/Abdominal exam: Present: soft. Absent: tenderness Extremities exam: Present: normal inspection. Absent: pedal edema, calf tenderness Neurological exam: Present: alert Psychiatric exam: Present: normal affect, normal mood Skin exam: Present: normal color Course Vital Signs 06/02/22 06/02/22 11:48 13:05 Temperature 98.2 F 98.1 F Pulse Rate 102 H 82 Respiratory 18 16 Rate Blood Pressure 132/78 137/78 O2 Sat by Pulse 99 98 Oximetry Medical Decision Making - Medical Decision Making Was pt. sent in by a medical professional or institution ([employer] [employer] [employer], CLUB DIRECTOR, urgent care, hospital, or fpc...) When possible be specific @ -No Did you speak to anyone other than the patient for history (EMS, parent, family, police, friend...)? What history was obtained from this source @ -No Did you review nursing and triage notes (agree or disagree)? Why? @ -I reviewed and agree with nursing and triage notes Were old charts reviewed (outside hosp., previous admission, EMS record, old EKG, old radiological studies, urgent care reports/EKG's, fpc records)? Report findings @ -No old charts were reviewed Differential Diagnosis (chest pain, altered mental status, abdominal pain women, abdominal pain men, vaginal bleeding, weakness, fever, dyspnea, syncope, headache, dizziness, GI bleed, back pain, seizure, CVA, palpatations, mental health)? @ -Differential Abdominal Pain Women: Appendicitis, Cholecystitis, diverticulosis, ischemic bowel, pancreatitis, hepatitis, UTI, gastroenteritis, AAA, incarcerated hernia, bowel obstruction, constipation, inflammatory bowel, hepatitis, peptic ulcer disease, splenic infarction, perforated viscus, vulvitis, ovarian torsion, PID, kidney stone, placenta abruption, this is not meant to be an all-inclusive list EKG interpreted by me (3pts min.). @ -As above X-rays interpreted by me (1pt min.). @ -Chest x-ray and abdominal x-ray revealed nonspecific findings CT interpreted by me (1pt min.). @ -Report reviewed U/S interpreted by me (1pt. min.). @ -None done What testing was considered but not performed or refused? (CT, X-rays, U/S, labs)? Why? @ -None What meds were considered but not given or refused? Why? @ -None Did you discuss the management of the patient with other professionals (professionals i.e. [employer] EDUARDO ال[employer], CLUB DIRECTOR, lab, RT, psych nurse, director of social media marketing, business operations manager, teacher, community liaison officer, insurance case manager)? Give summary @ -No Was smoking cessation discussed for >3mins.? @ -No Was critical care preformed (if so, how long)? @ -No Were there social determinants of health that impacted care today? How? (Homelessness, low income, unemployed, alcoholism, drug addiction, transportation, low edu. Level, literacy, decrease access to med. care, fci, rehab)? @ -No Was there de-escalation of care discussed even if they declined (Discuss DNR or withdrawal of care, Hospice)? DNR status @ -No What co-morbidities impacted this encounter? (DM, HTN, Smoking, COPD, CAD, Cancer, CVA, ARF, Chemo, Hep., AIDS, mental health diagnosis, sleep apnea, morbid obesity)? @ -None Was patient admitted / discharged? Hospital course, mention meds given and route, prescriptions, significant lab abnormalities, going to OR and other pertinent info. @ -Patient reevaluated evaluated without significant change. Case was discussed with Dr. Tadeo who did request computed tomography scan. She will admit patient for scope tomorrow. Undiagnosed new problem with uncertain prognosis? @ -No Drug Therapy requiring intensive monitoring for toxicity (Heparin, Nitro, Insulin, Cardizem)? @ -No Were any procedures done? @ -No Diagnosis/symptom? @ -Esophageal stricture Acute, or Chronic, or Acute on Chronic? @ -acute Uncomplicated (without systemic symptoms) or Complicated (systemic symptoms)? @ -default Side effects of treatment? @ -No Exacerbation, Progression, or Severe Exacerbation? @ -No Poses a threat to life or bodily function? How? (Chest pain, USA, OR, pneumonia, PE, COPD, DKA, ARF, appy, cholecystitis, CVA, Diverticulitis, Homicidal, Suicidal, threat to staff... and all critical care pts) @ -No - Lab Data Result diagrams: 06/02/22 13:46 06/02/22 13:46 Lab Results 06/02/22 06/02/22 06/02/22 Range/Units 13:46 13:46 13:46 WBC 8.1 (3.8-10.6) k/uL RBC 4.99 (3.80-5.40) m/uL Hgb 14.7 (11.4-16.0) gm/dL Hct 44.8 (34.0-46.0) % MCV 89.8 (80.0-100.0) fL MCH 29.4 (25.0-35.0) pg MCHC 32.7 (31.0-37.0) g/dL RDW 13.8 (11.5-15.5) % Plt Count 363 (150-450) k/uL MPV 7.9 Neutrophils % 58 % Lymphocytes % 29 % Monocytes % 7 % Eosinophils % 1 % Basophils % 1 % Neutrophils # 4.7 (1.3-7.7) k/uL Lymphocytes # 2.4 (1.0-4.8) k/uL Monocytes # 0.6 (0-1.0) k/uL Eosinophils # 0.1 (0-0.7) k/uL Basophils # 0.1 (0-0.2) k/uL PT 9.7 (9.0-12.0) sec INR 0.9 (<1.2) APTT 20.6 L (22.0-30.0) sec Sodium 142 (137-145) mmol/L Potassium 4.4 (3.5-5.1) mmol/L Chloride 103 (98-107) mmol/L Carbon Dioxide 27 (22-30) mmol/L Anion Gap 12 mmol/L BUN 10 (7-17) mg/dL Creatinine 0.93 (0.52-1.04) mg/dL Est GFR (CKD-EPI)AfAm 80 (>60 ml/min/1.73 sqM) Est GFR (CKD-EPI)NonAf 69 (>60 ml/min/1.73 sqM) Glucose 130 H (74-99) mg/dL Calcium 9.7 (8.4-10.2) mg/dL Total Bilirubin 0.7 (0.2-1.3) mg/dL AST 34 (14-36) U/L ALT 32 (4-34) U/L Alkaline Phosphatase 147 H (38-126) U/L Total Protein 7.8 (6.3-8.2) g/dL Albumin 4.8 (3.5-5.0) g/dL Amylase 50 (30-110) U/L Lipase 25 (23-300) U/L Disposition Clinical Impression: Esophageal stricture Disposition: ADMITTED IP TO THIS HOSP Is patient prescribed a controlled substance at d/c from ED?: No Referrals: Garth Blackburn MD [Primary Care Provider] - 1-2 days Time of Disposition: 15:49
[2022-06-02 14:05] LABS: Basophils # (A) 0.1 k/uL (0-0.2); Basophils % (A) 1 %; Eosinophils # (A) 0.1 k/uL (0-0.7); Eosinophils % (A) 1 %; HCT 44.8 % (34.0-46.0); HGB 14.7 gm/dL (11.4-16.0); Lymphocytes # (A) 2.4 k/uL (1.0-4.8); Lymphocytes % (A) 29 %; MCH 29.4 pg (25.0-35.0); MCHC 32.7 g/dL (31.0-37.0); MCV 89.8 fL (80.0-100.0); Mean Platelet Volume 7.9; Monocytes # (A) 0.6 k/uL (0-1.0); Monocytes % (A) 7 %; Neutrophils # (A) 4.7 k/uL (1.3-7.7); Neutrophils % (A) 58 %; Platelet Count 363 k/uL (150-450); RBC 4.99 m/uL (3.80-5.40); RDW 13.8 % (11.5-15.5); WBC 8.1 k/uL (3.8-10.6)
--- NOTE | 2022-06-02 14:06 | XR ---
EXAMINATION TYPE: XR chest 2V DATE OF EXAM: 06/02/2022 2:03 PM COMPARISON: None TECHNIQUE: XR chest 2V Frontal and lateral views of the chest. CLINICAL INDICATION:Female, 56 years old with history of abdominal pain; FINDINGS: Lungs/Pleura: There is no evidence of pleural effusion, focal consolidation, or pneumothorax. Pulmonary vascularity: Unremarkable. Heart/mediastinum: Cardiomediastinal silhouette is unremarkable. Musculoskeletal: No acute osseous pathology. Other findings: Surgical clips in the upper abdomen. Anterior abdominal wall sutures. IMPRESSION: No acute cardiopulmonary disease/process.
--- NOTE | 2022-06-02 14:10 | XR ---
EXAMINATION TYPE: XR KUB DATE OF EXAM: 06/02/2022 COMPARISON: CT abdomen and pelvis 06/03/2020 HISTORY: Abdominal pain TECHNIQUE: Upright KUB of the abdomen was obtained with 3 radiographs. FINDINGS: Small bowel demonstrates no evidence for dilatation or air fluid levels. Gas and fecal material is seen in non-distended colon. No convincing evidence for pneumoperitoneum. Cholecystectomy clips in right upper quadrant. No unusual calcifications. Midline surgical clips identified. Bilateral tubal ligation clips. Post surgical changes from Chip-en -Y gastric bypass with suture material identified. The lung bases are clear. The osseous structures are intact. Right abdominal skin surface electronic device. IMPRESSION: 1. Overall nonobstructive bowel gas pattern. 2. Postsurgical changes.
[2022-06-02] MEDS ORDERED: IOPAMIDOL CONTRAST (ORAL USE) VIAL PO PRN (14:17)
[2022-06-02 14:18] LABS: Albumin 4.8 g/dL (3.5-5.0); Calcium 9.7 mg/dL (8.4-10.2); Potassium 4.4 mmol/L (3.5-5.1); Total Bilirubin 0.7 mg/dL (0.2-1.3); Total Protein 7.8 g/dL (6.3-8.2)
[2022-06-02 14:28] LABS: INR 0.9 (<1.2); Prothrombin Time 9.7 sec (9.0-12.0)
[2022-06-02 14:31] LABS: Partial Thromboplastin Time 20.6 sec (22.0-30.0)
--- NOTE | 2022-06-02 15:06 | CT ---
EXAMINATION TYPE: CT ChestAbdPelvis w con CT DLP: 968.2 mGycm, Automated exposure control for dose reduction was used. DATE OF EXAM: 06/02/2022 2:49 PM COMPARISON: 06/03/2020 CT abdomen. CLINICAL INDICATION:Female, 56 years old with history of Bariatric protocol, dysphasia;, Difficulty s wallowing and nausea. Technique: Multiple axial images of the chest, abdomen, and pelvis were obtained. Two-dimensional cor onal and sagittal reconstructions were obtained. Contrast used:100ml mL of Isovue 300 with IV Contrast, Oral contrast used: with Oral Contrast Findings: CHEST: LUNGS/ PLEURA: No focal consolidation, pneumothorax or pleural effusion. AIRWAY: Patent and unremarkable. HEART: Heart is mildly enlarged for size. MEDIASTINUM: No gross evidence of adenopathy. The esophagus demonstrates postsurgical change to the d istal portion. No abnormal soft tissue wall thickening visualized. Small hiatal hernia is present. Re tained in chest and contents and the distal esophagus. VASCULATURE: No aortic aneurysm. MUSCULOSKELETAL: No acute osseous abnormalities. SOFT TISSUES/LYMPH NODES: Unremarkable. LOWER NECK: Right thyroid nodule measuring up to 2.0 cm. ABDOMEN: ABDOMEN LIVER: Diffusely hypoattenuating parenchyma. GALLBLADDER AND BILE DUCTS: Unremarkable. PANCREAS: Lipomatous atrophy changes. SPLEEN: Unremarkable. ADRENAL GLANDS: Unremarkable. KIDNEYS AND URETERS: No evidence of hydronephrosis or renal calculus. The ureters are unremarkable. PELVIS BLADDER: Unremarkable REPRODUCTIVE: Unremarkable. ABDOMEN & PELVIS STOMACH AND BOWEL: No evidence of bowel obstruction. Appendix is normal. Postsurgical changes of the gastric lumen and distal esophagus likely representing Chip-en-Y.. The excluded gastric lumen is deco mpressed. There is retained debris within the distal esophagus as described above PERITONEUM: No evidence of pneumoperitoneum or free fluid. VASCULATURE: No evidence of aortic aneurysm. MUSCULOSKELETAL: No acute osseous abnormalities. Mild disc degeneration changes are present throughou t the thoracolumbar spine. LYMPH NODES: No gross evidence for lymphadenopathy. SOFT TISSUE/ABDOMINAL WALL: Postsurgical changes anterior abdominal wall. IMPRESSION: 1. Postsurgical changes compatible with Chip-en-Y. There is small hiatal hernia with retained ingest ed contents within the distal esophagus. Findings suggestive of gastric reflux versus esophageal dysm otility versus partial obstruction at the cardiac sphincter. 2. Hepatic steatosis.
[2022-06-02] MEDS ORDERED: ONDANSETRON 4 MG/2 ML VIAL IVP PRN (15:49)
[2022-06-02] MEDS ORDERED: NALOXONE 0.4 MG/ML 1 ML VIAL IV PRN (15:49)
[2022-06-02] MEDS ORDERED: ACETAMINOPHEN TAB 325 MG TAB PO PRN (15:49)
[2022-06-02] MEDS: SODIUM CHLORIDE 0.9% 1,000 ML IV SCH (16:04)
[2022-06-02] MEDS ORDERED: HYDROmorphone 1 MG/ML 1 ML SYRINGE IVP STA (17:08)
--- NOTE | 2022-06-02 20:39 | P.GSHP ---
History of Present Illness H&P Date: 06/02/22 CHIEF COMPLAINT: Esophageal obstruction HISTORY OF PRESENT ILLNESS: Vira Trujillo is a 56-year-old female who presents with severe epigastric pain and dysphagia following cornbeef meal since Wednesday, 3 days ago. She is unable to tolerate liquids since event over 2-3 days. She has a personal history of gastric bypass over 20 years ago [place] [address] Keller. She was 300 pounds. Her lowest weight was 142 pounds. She reports food occasionally gets stuck when she eats. She reports getting a revision of her bariatric procedure in [place], [place] including in [place]. She has pre-existing history of esophageal stricture requiring dilation. At her height of 5 feet 7 inches, her ideal weight is 158 pounds. Her highest weight was 300 pounds, BMI 47.1. Her lowest weight was 142 pounds. Today she comes in weighing 170 pounds from 188 pounds, 2 years ago. She has lost 18 pounds in 2 years. Body mass index is down to 26.6. Her lifetime weight loss is 130 pounds. Her percent excess weight loss is 89%. She is 12 pounds overweight. PAST MEDICAL HISTORY: 1. Morbid obesity due to excess calories, BMI 47.1 2. Multiple venothrombolic events including pulmonary embolisms. 3. Uveitis. 4. Gastroesophageal reflux disease. 5. Hearing disorder including deafness. 6. Renal insufficiency. 7. Kidney stones. 8. Vitamin D deficiency. 9. Iron deficiency. 10. Depression. 11. Rheumatoid disease. 12. Neuropathy. 13. Diabetes type 2. 14. Sjogren's disease PAST SURGICAL HISTORY: 1. Chip-en-Y gastric bypass with multiple complications. 2. Gastrectomy secondary to bariatric complications. 3. section. 4. Cholecystectomy. 5. Heart catheterization. 6. Orthopedic procedure. 7. Removal of kidney stones. 8. Tubal ligation. 9. Panniculectomy. MEDICATIONS: Reviewed ALLERGIES: Reviewed SOCIAL HISTORY: Lifelong nontobacco user. FAMILY HISTORY: No reports of gastrointestinal malignancies. No reports of lupus. REVIEW OF SYSTEMS: CONSTITUTIONAL: At her height of 5 feet 7 inches, her ideal weight is 158 pounds. Her highest weight was 300 pounds, BMI 47.1. Her lowest weight was 142 pounds. HEENT: Has troubles with hearing; however, she does have trouble with uveitis secondary to rheumatoid disease. CARDIOVASCULAR: Prior history of pulmonary embolism; however, denies any recent heart attacks. RESPIRATORY: No reports of active obstructive sleep apnea. GASTROINTESTINAL: Reports diarrhea. Also reports possible celiac disease. MUSCULOSKELETAL: Has rheumatoid arthritis. Reports intermittent joint pain including resultant neuropathy. NEURO: No reports of stroke or seizure disorder. Neuropathy of the distal extremities. HEMATOLOGIC: Has a prior history of pulmonary embolus at least four times. She reports as a result of her surgery, she has had at least four blood clots in her lungs. PSYCH: History of depression without suicidal ideation. SKIN: No skin cancer. No panniculitis ENDOCRINE: Has diabetes. No thyroid disorder. PHYSICAL EXAM: VITAL SIGNS: 5 foot 7, 77.11 kg. Body mass index 26.6 GENERAL: Well developed female in no acute distress. HEENT: No scleral icterus. Extraocular movements intact. Pupils equal. NECK: Supple, without lymphadenopathy. CHEST: Nonlabored respirations. Equal bilateral excursions. CARDIOVASCULAR: Regular rate and rhythm. ABDOMEN: Soft, nontender. MUSCULOSKELETAL: No clubbing, cyanosis, or edema. NEURO: No focal or lateralizing signs. PSYCH: Alert and oriented to person, palce, and time SKIN: Well perfused, good skin turgor LABS: Reviewed. Hemoglobin 14.7. WBC normal. STUDIES: CT of the abdomen and pelvis and a pericardial reviewed including chest demonstrates distal esophageal thickness including food impaction with esophageal obstruction. This is my independent interpretation. Features of gastric bypass without free air or small bowel obstruction identified ASSESSMENT: 1. Acute esophageal obstruction due to food impaction 2. Personal history of gastrojejunal obstruction 3. History of gastric bypass with complications Uveitis. 4. Gastroesophageal reflux disease. 5. Hearing disorder including deafness. 6. Renal insufficiency. 7. Kidney stones. 8. Vitamin D deficiency. 9. Iron deficiency. 10. Depression. 11. Rheumatoid disease. 12. Neuropathy. 13. Diabetes type 2. 14. Sjogren's disease 15. Morbid obesity due to excess calories, BMI 47.1, now 26.6 16. Multiple venothrombolic events including pulmonary embolisms. 17. Dehydration PLAN: 1. Patient presents with severe epigastric pain and dysphagia following cornbeef. Recommend IV fluid hydration and EGD with dilation. 2. Recommend EGD with removal of foreign body Past Medical History Past Medical History: Diabetes Mellitus, Deep Vein Thrombosis (DVT), Eye Disorder, GERD/Reflux, Liver Disease, Neurologic Disorder, Osteoarthritis (OA), Pulmonary Embolus (PE), Renal Disease, Rheumatoid Arthritis (RA) Additional Past Medical History / Comment(s): Low Iron-recent iron infusion, Low B12, arthritis worse in feet and toes, goiters, nodules on neck, glaucoma bilaterally, bilateral PE 2013, Kidney stones, neuropathy in bilateral feet, torn Right achilles, sjogrens, nausea & dysphagia @times History of Any Multi-Drug Resistant Organisms: MRSA Date of last positivie culture/infection: 2004 MDRO Source:: abdomen incision Past Surgical History: Bariatric Surgery, Section, Cholecystectomy, Heart Catheterization, Orthopedic Surgery, Tubal Ligation Additional Past Surgical History / Comment(s): RYGB [address] Keller at [facility] (went to gastrectomy 2004 at [facility] [place]), left shoulder, Tubal Ligation, panniculectomy, lithotripsy, and sx for kidney stones, Past Anesthesia/Blood Transfusion Reactions: Previous Problems w/ Anesthesia, Postoperative Nausea & Vomiting (PONV) Additional Past Anesthesia/Blood Transfusion Reaction / Comment(s): sometimes BP gets low w/anesthesia Past Psychological History: Anxiety Smoking Status: Never smoker Past Alcohol Use History: None Reported Past Drug Use History: None Reported Medications and Allergies Home Medications Medication Instructions Recorded Confirmed Type Hydroxychloroquine Sulfate 200 mg PO BID 05/10/19 06/02/22 History [Plaquenil] DULoxetine HCL [Cymbalta] 60 mg PO DAILY 02/02/20 06/02/22 History Insulin Aspart (For Pump) [NovoLOG 0.01 unit SQ-PUMP CONTINUOUS 02/02/20 06/02/22 History (For Pump)] Folic Acid 1 mg PO DAILY 02/23/20 06/02/22 History Cyanocobalamin (Vitamin B-12) 1,000 mcg PO DAILY 06/03/20 06/02/22 History [Vitamin B-12] Ascorbic Acid [Vitamin C] 1,000 mg PO DAILY 06/02/22 06/02/22 History Cholecalciferol [Vitamin D3 (25 150 mcg PO DAILY 06/02/22 06/02/22 History Mcg = 1000 Iu)] Glucagon Emergency Kit 1 mg IM ONCE PRN 06/02/22 06/02/22 History Pyridoxine HCl (Vitamin B6) 100 mg PO DAILY 06/02/22 06/02/22 History [Vitamin B-6] Vitamin A 2,400 mcg PO DAILY 06/02/22 06/02/22 History Allergies Allergy/AdvReac Type Severity Reaction Status Date / Time meperidine HCl [From Demerol] Allergy Unknown Verified 06/02/22 16:16 propoxyphene napsylate Allergy Unknown Verified 06/02/22 16:16 [From Darvocet-N] sulfamethoxazole Allergy Rash/Hives Verified 06/02/22 16:16 [From Bactrim] trimethoprim [From Bactrim] Allergy Rash/Hives Verified 06/02/22 16:16 Surgical - Exam Vital Signs Temp Pulse Resp BP Pulse Ox 98.2 F 102 H 18 132/78 99 06/02/22 11:48 06/02/22 11:48 06/02/22 11:48 06/02/22 11:48 06/02/22 11:48 Results - Labs 06/02/22 13:46 06/02/22 13:46 Abnormal Lab Results - Last 24 Hours (Table) 06/02/22 06/02/22 Range/Units 13:46 13:46 APTT 20.6 L (22.0-30.0) sec Glucose 130 H (74-99) mg/dL Alkaline Phosphatase 147 H (38-126) U/L Diabetes panel 06/02/22 Range/Units 13:46 Sodium 142 (137-145) mmol/L Potassium 4.4 (3.5-5.1) mmol/L Chloride 103 (98-107) mmol/L Carbon Dioxide 27 (22-30) mmol/L BUN 10 (7-17) mg/dL Creatinine 0.93 (0.52-1.04) mg/dL Glucose 130 H (74-99) mg/dL Calcium 9.7 (8.4-10.2) mg/dL AST 34 (14-36) U/L ALT 32 (4-34) U/L Alkaline Phosphatase 147 H (38-126) U/L Total Protein 7.8 (6.3-8.2) g/dL Albumin 4.8 (3.5-5.0) g/dL Calcium panel 06/02/22 Range/Units 13:46 Calcium 9.7 (8.4-10.2) mg/dL Albumin 4.8 (3.5-5.0) g/dL Pituitary panel 06/02/22 Range/Units 13:46 Sodium 142 (137-145) mmol/L Potassium 4.4 (3.5-5.1) mmol/L Chloride 103 (98-107) mmol/L Carbon Dioxide 27 (22-30) mmol/L BUN 10 (7-17) mg/dL Creatinine 0.93 (0.52-1.04) mg/dL Glucose 130 H (74-99) mg/dL Calcium 9.7 (8.4-10.2) mg/dL Adrenal panel 06/02/22 Range/Units 13:46 Sodium 142 (137-145) mmol/L Potassium 4.4 (3.5-5.1) mmol/L Chloride 103 (98-107) mmol/L Carbon Dioxide 27 (22-30) mmol/L BUN 10 (7-17) mg/dL Creatinine 0.93 (0.52-1.04) mg/dL Glucose 130 H (74-99) mg/dL Calcium 9.7 (8.4-10.2) mg/dL Total Bilirubin 0.7 (0.2-1.3) mg/dL AST 34 (14-36) U/L ALT 32 (4-34) U/L Alkaline Phosphatase 147 H (38-126) U/L Total Protein 7.8 (6.3-8.2) g/dL Albumin 4.8 (3.5-5.0) g/dL
[2022-06-02] MEDS ORDERED: ACETAMINOPHEN IV (For NPO) 1,000 MG in EMPTY BAG 1 BAG IVPB PRN (22:08)
[2022-06-02] MEDS ORDERED: HYDROmorphone 1 MG/ML 1 ML SYRINGE IVP PRN (22:08)
[2022-06-02] MEDS ORDERED: DEXTROSE 50% SYRINGE 50 ML IVP PRN ×2 (22:09)
[2022-06-02] MEDS ORDERED: SODIUM CHLORIDE 0.9% 1,000 ML IV ONE (22:11)
[2022-06-02] MEDS ORDERED: Insulin Aspart (For Pump) 100 UNIT/ML VIAL SQ-PUMP SCH (22:15)
[2022-06-03] MEDS: SODIUM CHLORIDE 0.9% 1,000 ML IV SCH ×2 (08:00)
[2022-06-03 08:56] LABS: Glucose,Whole Blood 111 mg/dL (70-110)
[2022-06-03] MEDS ORDERED: PANTOPRAZOLE 40 MG/10 ML VIAL IV SCH (09:00)
[2022-06-03] MEDS ORDERED: LIDOCAINE 2% INJ 20 MG/ML (2 ML VIAL) ONE (10:59)
[2022-06-03] MEDS ORDERED: IV FLUID CONTINUATION 1,000 ML IV ONE ×2 (10:59)
[2022-06-03] MEDS ORDERED: PROPOFOL 10 MG/ML 20 ML VIAL IV ONE (10:59)
[2022-06-03 12:23] LABS: Glucose,Whole Blood 97 mg/dL (70-110)
--- NOTE | 2022-06-03 14:31 | P.DS ---
Providers Date of admission: 06/02/22 15:50 Expected date of discharge: 06/03/22 Attending physician: Kiersten Erickson Primary care physician: Garth Blackburn [facility] Course: Discharge diagnosis 1. Epigastric pain and dysphagia status post EGD with dilation, removal of foreign body and biopsy 2. History of Chip-en-Y gastric bypass surgery Hospital course This is a 56-year-old female who presented to the hospital with complaints of severe epigastric pain and dysphagia after eating corned beef 3 days ago. Computed tomography scan had shown evidence of esophageal obstruction. Patient is status post EGD with dilation, removal of foreign body and biopsy. She is tolerating clear liquid diet. She denies pain. She has been up and ambulating. She is afebrile. She is stable for discharge. Physician Sand Conditioner note has been reviewed by physician. Signing provider agrees with the documented findings, assessment, and plan of care. Patient Condition at Discharge: Stable Plan - Discharge Summary New Discharge Prescriptions: Continue Hydroxychloroquine Sulfate [Plaquenil] 200 mg PO BID Insulin Aspart (For Pump) [NovoLOG (For Pump)] 0.01 unit SQ-PUMP CONTINUOUS DULoxetine HCL [Cymbalta] 60 mg PO DAILY Folic Acid 1 mg PO DAILY Cyanocobalamin (Vitamin B-12) [Vitamin B-12] 1,000 mcg PO DAILY Pyridoxine HCl (Vitamin B6) [Vitamin B-6] 100 mg PO DAILY Cholecalciferol [Vitamin D3 (25 Mcg = 1000 Iu)] 150 mcg PO DAILY Vitamin A 2,400 mcg PO DAILY Ascorbic Acid [Vitamin C] 1,000 mg PO DAILY Glucagon Emergency Kit 1 mg IM ONCE PRN PRN Reason: LOW BLOOD SUGAR Discharge Medication List Hydroxychloroquine Sulfate [Plaquenil] 200 mg PO BID 05/10/19 [History] DULoxetine HCL [Cymbalta] 60 mg PO DAILY 02/02/20 [History] Insulin Aspart (For Pump) [NovoLOG (For Pump)] 0.01 unit SQ-PUMP CONTINUOUS 02/02/20 [History] Folic Acid 1 mg PO DAILY 02/23/20 [History] Cyanocobalamin (Vitamin B-12) [Vitamin B-12] 1,000 mcg PO DAILY 06/03/20 [History] Ascorbic Acid [Vitamin C] 1,000 mg PO DAILY 06/02/22 [History] Cholecalciferol [Vitamin D3 (25 Mcg = 1000 Iu)] 150 mcg PO DAILY 06/02/22 [History] Glucagon Emergency Kit 1 mg IM ONCE PRN 06/02/22 [History] Pyridoxine HCl (Vitamin B6) [Vitamin B-6] 100 mg PO DAILY 06/02/22 [History] Vitamin A 2,400 mcg PO DAILY 06/02/22 [History] Follow up Appointment(s)/Referral(s): Garth Blackburn MD [Primary Care Provider] [facility] [place] [place] [facility] - 06/10/22 Discharge Disposition: HOME SELF-CARE
[2022-06-03 15:31] VITALS: BP 117/63; PULSE 80; RESP 16; TEMP 98.4
--- NOTE | 2022-06-03 22:17 | P.PCN ---
Date of Procedure: 06/03/22 Description of Procedure: PREOPERATIVE DIAGNOSIS: Acute esophageal obstruction due to food impaction Personal history of dysphagia Personal history of gastrojejunal obstruction Personal history gastric bypass Nausea with vomiting. 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 INDICATIONS: The patient is a 56-year-old female who presents with acute esophageal obstruction with food impaction. Benefits and risks of the procedure were described. Informed consent was obtained. DESCRIPTION: The patient was brought into the endoscopy suite and laid in the left lateral decubitus position. After a timeout was confirmed, the procedure was initiated. An Olympus gastroscope was passed along the posterior oropharynx down to the distal esophagus where large food impaction/esophageal mass was found along esophagogastro jejunal anastomosis. Multiple passes using rothnet x 3 were used to retrieve food impaction. The gastric pouch was entered. A esophago-jejunal stricture of 12 mm was found as the adult gastroscope was 9.5 mm in size. Esophageal mass at the anastomosis of 8 mm was identified circumferentially suspicious for chronic inflammation. Biopsies were obtained local forceps. The scope was reentered for balloon dilation of the esophago-gastrojejunal anastomosis. Final insufflation from 12 to 19 mm was performed with a total of 2 minutes. The scope was advanced up to 60 cm from the incisors into the Chip limb. The mucosa of the gastrojejunal anastomosis was intact. No chronic gastrojejunal marginal ulcer was encountered. No full-thickness injury was encountered. The GI tract was desufflated. The patient tolerated the procedure well. FINDINGS: Large food impaction of anastomosis retrieved Stricture of approximately 12 mm encountered. Circumferential 5 mm to 1 cm esophageal mass with biopsies obtained. Balloon dilatation to 19 mm. RECOMMENDATIONS: Recommend liquid diet Recommend omeprazole 40 mg daily Follow-up at the bariatric center.
== END 2022-06-03 15:39 | disposition home or self-care (01) ==
LOC: EC 11:23 → 5NMEDONC 15:50
PROVIDERS: ADMIT Surgery Plastic and Reconstructive Surgery; ATTEND Surgery Plastic and Reconstructive Surgery
DX: K22.2 Esophageal obstruction (principal); Z98.84 Bariatric surgery status; K21.9 Gastro-esophageal reflux disease without esophagitis; E86.0 Dehydration; H91.90 Unspecified hearing loss, unspecified ear; N28.9 Disorder of kidney and ureter, unspecified; Z87.442 Personal history of urinary calculi; E55.9 Vitamin D deficiency, unspecified; E61.1 Iron deficiency; F32.A Depression, unspecified; M06.9 Rheumatoid arthritis, unspecified; E11.40 Type 2 diabetes mellitus with diabetic neuropathy, unspecified; Z96.41 Presence of insulin pump (external) (internal); M35.00 Sjogren syndrome, unspecified; E66.01 Morbid (severe) obesity due to excess calories; Z68.42 Body mass index [BMI] 45.0-49.9, adult; Z86.711 Personal history of pulmonary embolism; M19.90 Unspecified osteoarthritis, unspecified site; H40.9 Unspecified glaucoma; Z86.14 Personal history of Methicillin resistant Staphylococcus aureus infection; Z98.891 History of uterine scar from previous surgery; Z90.49 Acquired absence of other specified parts of digestive tract; Z98.51 Tubal ligation status; Z98.890 Other specified postprocedural states; F41.9 Anxiety disorder, unspecified; Z79.4 Long term (current) use of insulin; Z79.899 Other long term (current) drug therapy; Z88.5 Allergy status to narcotic agent; Z88.2 Allergy status to sulfonamides
CPT/HCPCS: 96376; 96375 ×2; 96361; 96374; 99285; 36415; 88305; 80053; 82150; 83690; 85025; 85610; 85730; 83036; 71046; 74018; 71260; 74177; 43239; 43247; 43249; G0378 ×2; J2405; J1170; J0131; J2704; C9113 ×2; Q9967; J2001; C1726; 44799

== ENCOUNTER → 2022-06-10 | Outpatient (CLI) | payer BC ==
[2022-06-10 15:56] VITALS: BP 138/76; PULSE 85; TEMP 98; BMI 27.2
--- NOTE | 2022-06-10 16:20 | P.HPBAR ---
Bariatric H&P - History & Physicial H&P Date: 06/10/22 History & Physicial: Visit/CC: hospitalization F/U Patient initial contact: Initial weight: 136.078 kg Initial weight in pounds: 300.00 Height: 5 ft 7 in Initial BMI: 47.0 Last weight: Current weight: 78.925 kg Current weight in pounds: 174.00 Current BMI: 27.2 [place] body weight (based on NIH guidelines): 61.235 kg Excess body weight loss: 76.3% The patient is a 56 year-old F who presents for Bariatric Assessment. She had food impaction. Plan for protonix. Getting full labs. Tolerating. She has lost weight. Needs labs. May need repeat EGD Past Medical History Past Medical History: Diabetes Mellitus, Deep Vein Thrombosis (DVT), Eye Disorder, GERD/Reflux, Liver Disease, Neurologic Disorder, Osteoarthritis (OA), Pulmonary Embolus (PE), Renal Disease, Rheumatoid Arthritis (RA) Additional Past Medical History / Comment(s): Low Iron-recent iron infusion, Low B12, arthritis worse in feet and toes, goiters, nodules on neck, glaucoma bilaterally, bilateral PE 2013, Kidney stones, neuropathy in bilateral feet, torn Right achilles, sjogrens, nausea & dysphagia @times History of Any Multi-Drug Resistant Organisms: MRSA Year Discovered:: 2004 MDRO Source:: abdomen incision Past Surgical History: Bariatric Surgery, Section, Cholecystectomy, Heart Catheterization, Orthopedic Surgery, Tubal Ligation Additional Past Surgical History / Comment(s): RYGB [address] Keller at [facility] (went to gastrectomy 2004 at [facility]), left shoulder, Tubal Ligation, panniculectomy, lithotripsy, and sx for kidney stones, EGD w/ dilitation, removal of food that was stuck Past Anesthesia/Blood Transfusion Reactions: Previous Problems w/ Anesthesia, Postoperative Nausea & Vomiting (PONV) Additional Past Anesthesia/Blood Transfusion Reaction / Comm: sometimes BP gets low w/anesthesia Past Psychological History: Anxiety Smoking Status: Never smoker Past Alcohol Use History: None Reported Past Drug Use History: None Reported Surgical - Exam Vital Signs Temp Pulse BP 98 F 85 138/76 06/10/22 15:50 06/10/22 15:50 06/10/22 15:50 Bariatric Checklist Checklist: Plan: Checklist: EGD: 1. Hiatal hernia: 2. H. Pylori: HgbA1c: Vitamin D: Smoking: Never smoker Primary care physician referral: Blackburn ([place]) Psychiatry clearance: Cardiology clearance: Sleep study: Diet journal: VTE risk score: VTE risk level: Rehab needs at discharge:
[2022-06-10 17:58] LABS: INR 0.9 (<1.2); Prothrombin Time 9.5 sec (9.0-12.0)
[2022-06-10 18:37] LABS: Partial Thromboplastin Time 20.3 sec (22.0-30.0)
[2022-06-10 23:04] LABS: HCT 44.5 % (37.2-46.3); MCH 29.1 pg (27.0-32.0); MCHC 31.5 g/dL (32.0-37.0); MCV 92.5 fL (80.0-97.0); Mean Platelet Volume 10.9 fL (9.5-12.2); NRBC Per 100 WBC 0 /100 WBCS (0.0-0.0); Platelet Count 351 X 10*3/uL (140-440); RBC 4.81 X 10*6/uL (4.10-5.20); RDW 14.2 % (11.5-14.5); WBC 8.07 X 10*3/uL (4.50-10.00)
[2022-06-11 00:02] LABS: % Iron Saturation 13.54 (12.00-45.00); ALT 32 U/L (8-44); AST 29 U/L (13-35); African American GFR (CKD) 74.6 (60.0-200.0); Albumin 4.5 g/dL (3.8-4.9); Albumin/Globulin Ratio 1.56 (1.60-3.17); Alkaline Phosphatase 144 U/L (41-126); BUN/Creat Ratio 12.83 Ratio (12.00-20.00); Blood Urea Nitrogen 12.6 mg/dL (9.0-27.0); Chloride 104 mmol/L (96-109); Ferritin 38.1 ng/mL (10.0-291.0); Globulin 2.9 g/dL (1.6-3.3); Glucose 80 mg/dL (70-110); Iron 58 ug/dL (50-170); Magnesium 1.9 mg/dL (1.5-2.4); Non-African American GFR(CKD) 64.3 (60.0-200.0); Phosphorus 4.8 mg/dL (2.4-5.1); Potassium 4.4 mmol/L (3.5-5.5); Sodium 143 mmol/L (135-145); Total Iron Binding Capacity 431 ug/dL (228-460); Total Protein 7.4 g/dL (6.2-8.2)
[2022-06-11 00:38] LABS: Chol/HDL Ratio 2.13 Ratio; LDL Cholesterol,Calculated 87.4 mg/dL (0.0-131.0)
[2022-06-11 13:03] LABS: Zinc, Serum 66 ug/dL (60-130)
[2022-06-12 11:37] LABS: Vit B1(Thiamine) 87 ug/L (38-122)
[2022-06-12 11:53] LABS: Vitamin A 81 ug/dL (38-106)
== END ==
LOC: BARWHC3 14:18
PROVIDERS: ATTEND Surgery Plastic and Reconstructive Surgery
DX: E66.01 Morbid (severe) obesity due to excess calories (principal); E11.9 Type 2 diabetes mellitus without complications; Z86.718 Personal history of other venous thrombosis and embolism; K21.9 Gastro-esophageal reflux disease without esophagitis; I26.99 Other pulmonary embolism without acute cor pulmonale; M06.9 Rheumatoid arthritis, unspecified; Z68.27 Body mass index [BMI] 27.0-27.9, adult; E89.1 Postprocedural hypoinsulinemia; E45 Retarded development following protein-calorie malnutrition; E46 Unspecified protein-calorie malnutrition; E44.0 Moderate protein-calorie malnutrition; E44.1 Mild protein-calorie malnutrition; K74.1 Hepatic sclerosis; N19 Unspecified kidney failure; T56.894A Toxic effect of other metals, undetermined, initial encounter; D50.8 Other iron deficiency anemias; D50.9 Iron deficiency anemia, unspecified; Z88.2 Allergy status to sulfonamides; Z88.6 Allergy status to analgesic agent; Z88.5 Allergy status to narcotic agent
CPT/HCPCS: 80053; 80061; 82306; 82525; 82607; 82728; 82746; 83036; 83540; 83550; 83735; 83970; 84100; 84134; 84255; 84425; 84443; 84590; 84630; 85027; 85610; 85730; 99211

== ENCOUNTER 2023-01-25 07:42 | Day surgery (SDC) | payer BC ==
[2023-01-21 12:16] VITALS: BMI 28.1
--- NOTE | 2023-01-25 07:12 | P.GSHP ---
History of Present Illness H&P Date: 01/25/23 CHIEF COMPLAINT: GERD HISTORY OF PRESENT ILLNESS: The patient is a 57-year-old female who presents reports gastroesophageal reflux disease. Upper endoscopy was offered for further evaluation and management. PAST MEDICAL HISTORY: Please see list. PAST SURGICAL HISTORY: Please see list. MEDICATIONS: Please see list. ALLERGIES: Please see list. SOCIAL HISTORY: No illicit drug use FAMILY HISTORY: No reports of Crohn disease or ulcerative colitis. REVIEW OF ORGAN SYSTEMS: CONSTITUTIONAL: No reports of fevers or chills. GI: Denies any blood in stools or constipation. PHYSICAL EXAM: VITAL SIGNS: Stable GENERAL: Well-developed and pleasant in no acute distress. HEENT: No scleral icterus. Extraocular movements grossly intact. Moist buccal mucosa. NECK: Supple without lymphadenopathy. CHEST: Unlabored respirations. Equal bilateral excursions. CARDIOVASCULAR: Regular rate and rhythm. Distal 2+ pulses. ABDOMEN: Soft, nondistended. MUSCULOSKELETAL: No clubbing, cyanosis, or edema. ASSESSMENT: 1. Gastroesophageal reflux disease PLAN: 1. Recommend proceeding with an upper endoscopy Past Medical History Past Medical History: Diabetes Mellitus, Eye Disorder, GERD/Reflux, Liver Disease, Neurologic Disorder, Osteoarthritis (OA), Pulmonary Embolus (PE), Rheumatoid Arthritis (RA) Additional Past Medical History / Comment(s): hx Low Iron with infusions, Low B12, goiters, nodules on neck, glaucoma bilaterally, bilateral PE 2013, Kidney stones, neuropathy in feet, torn Right achilles, sjogrens, hx of chip-n-y and then gastrectomy, constipation, hemorrhoids., nausea & dysphagia., insulin pump. History of Any Multi-Drug Resistant Organisms: MRSA Date of last positivie culture/infection: 2004 MDRO Source:: abdomen incision Past Surgical History: Bariatric Surgery, Section, Cholecystectomy, Heart Catheterization, Orthopedic Surgery, Tubal Ligation Additional Past Surgical History / Comment(s): Chip-n-y Gastric Bypass [address] Keller at [facility] (went to gastrectomy 2004 at [facility]), left shoulder, Tubal Ligation, panniculectomy, lithotripsy, and sx for kidney stones, EGD w/ dilation, removal of food that was stuck Past Anesthesia/Blood Transfusion Reactions: Previous Problems w/ Anesthesia, P ostoperative Nausea & Vomiting (PONV) Additional Past Anesthesia/Blood Transfusion Reaction / Comment(s): sometimes BP gets low w/anesthesia. brother difficulty waking up and low bp. Past Psychological History: Anxiety Smoking Status: Never smoker Past Alcohol Use History: Rare Past Drug Use History: None Reported - Past Family History Father History Unknown: Yes Family Medical History: Cancer Additional Family Medical History / Comment(s): pancreatic cancer Sister(s) Family Medical History: Cancer Additional Family Medical History / Comment(s): breast cancer Medications and Allergies Home Medications Medication Instructions Recorded Confirmed Type Hydroxychloroquine Sulfate 200 mg PO BID 05/10/19 01/21/23 History [Plaquenil] DULoxetine HCL [Cymbalta] 60 mg PO HS 02/02/20 01/21/23 History Insulin Aspart (For Pump) [NovoLOG 0 unit SQ-PUMP CONTINUOUS 02/02/20 01/21/23 History (For Pump)] Cyanocobalamin (Vitamin B-12) 3,000 mcg PO DAILY 06/03/20 01/21/23 History [Vitamin B-12] Cholecalciferol [Vitamin D3 (25 6,000 mcg PO DAILY 01/21/23 01/21/23 History Mcg = 1000 Iu)] Folic Acid 0.8 mg PO DAILY 01/21/23 01/21/23 History Prevacid (Unknown Dose) 1 dose PO DIRECTED PRN 01/21/23 History Vitamin A Acetate [Vitamin A] 3,000 mcg SL DAILY 01/21/23 01/21/23 History cycloSPORINE 0.05% OPHTH SOLN 1 applicator BOTH EYES DIRECTED 01/21/23 01/21/23 History [Restasis] Allergies Allergy/AdvReac Type Severity Reaction Status Date / Time meperidine HCl [From Demerol] Allergy Rash/Hives Verified 01/21/23 11:19 propoxyphene napsylate Allergy Rash/Hives, Verified 01/21/23 11:19 [From Darvocet-N] nausea sulfamethoxazole Allergy Rash/Hives Verified 01/21/23 11:19 [From Bactrim] trimethoprim [From Bactrim] Allergy Rash/Hives Verified 01/21/23 11:19
[~2023-01-25 07:42] MED LIST changes: +ACETAMINOPHEN TAB 500 MG TAB ONE; +HEPARIN SODIUM,PORCINE/PF 5,000 UNIT/0.5 ML SYRINGE SQ ONE; +ONDANSETRON 4 MG/2 ML VIAL ONE
[2023-01-25 08:15] LABS: Glucose,Whole Blood 130 mg/dL (70-110)
[2023-01-25 08:36] VITALS: RESP 16; TEMP 98
[2023-01-25] MEDS ORDERED: LIDOCAINE 1% INJ 10MG/ML (20 ML MDV) ONE (09:01)
[2023-01-25] MEDS ORDERED: PROPOFOL 10 MG/ML 20 ML VIAL IV ONE (09:01)
[2023-01-25] MEDS ORDERED: ONDANSETRON 4 MG/2 ML VIAL ONE (09:24)
[2023-01-25 09:46] VITALS: BP 113/69; PULSE 70
--- NOTE | 2023-01-25 09:50 | P.PCN ---
Date of Procedure: 01/25/23 Description of Procedure: PREOPERATIVE DIAGNOSIS: 1. Dysphagia. 2. s/p Chip-en-y gastric bypass. 3. Epigastric abdominal pain 4. Sjogren's 5. Depressive disorder 6. Gastroesophageal reflux disease 7. Diabetes type 2, insulin-dependent 8. Pulmonary embolism POSTOPERATIVE DIAGNOSIS: 1. Dysphagia. 2. s/p Chip-en-y gastric bypass. 3. Epigastric abdominal pain 4. Sjogren's 5. Depressive disorder 6. Gastroesophageal reflux disease 7. Diabetes type 2, insulin-dependent 8. Pulmonary embolism 9. Esophageal stricture without chronic ulcer or perforation OPERATION: Esophagogastrojejunoscopy with balloon dilatation from 15 to 20 mm. SURGEON: Kiersten Erickson MD ANESTHESIA: MAC. INDICATIONS: The patient is a 57-year-old female who presents with a history of dysphagia, gastric bypass including epigastric abdominal pain. Benefits and risks of the procedure were described. Informed consent was obtained. DESCRIPTION: The patient was brought into the endoscopy suite and laid in the left lateral decubitus position. After a timeout was confirmed, the procedure was initiated. An Olympus gastroscope was passed along the posterior oropharynx down to the distal esophagus where the squamocolumnar junction was unremarkable. The gastric pouch was entered. A esophagojejunal stricture of 15 mm was found as the adult gastroscope was 9.5 mm in size. A [employer] balloon dilator was placed through the scope. Final insufflation up to 20 mm was performed with a total of 2 minutes. The scope was advanced up to 60 cm from the incisors into the Chip limb. The mucosa of the gastrojejunal anastomosis was intact. No chronic gastrojejunal marginal ulcer was encountered. No full-thickness injury was encountered. The GI tract was desufflated. The patient tolerated the procedure well. FINDINGS: Squamocolumnar junction unremarkable at 37 cm. Stricture of approximately 15 mm encountered. No chronic gastrojejunal ulceration encountered. Successful balloon dilatation to 20 mm. Diaphragmatic hiatus at 40 cm. RECOMMENDATIONS: 1. Upper endoscopy with dilation as needed 2. Omeprazole or Prevacid daily Plan - Discharge Summary New Discharge Prescriptions: Continue Hydroxychloroquine Sulfate [Plaquenil] 200 mg PO BID Insulin Aspart (For Pump) [NovoLOG (For Pump)] 0 unit SQ-PUMP CONTINUOUS DULoxetine HCL [Cymbalta] 60 mg PO HS Cyanocobalamin (Vitamin B-12) [Vitamin B-12] 3,000 mcg PO DAILY Cholecalciferol [Vitamin D3 (25 Mcg = 1000 Iu)] 6,000 mcg PO DAILY Folic Acid 0.8 mg PO DAILY Vitamin A Acetate [Vitamin A] 3,000 mcg SL DAILY Prevacid (Unknown Dose) 1 dose PO DIRECTED PRN PRN Reason: Heartburn cycloSPORINE 0.05% OPHTH SOLN [Restasis] 1 applicator BOTH EYES DIRECTED Discharge Medication List Hydroxychloroquine Sulfate [Plaquenil] 200 mg PO BID 05/10/19 [History] DULoxetine HCL [Cymbalta] 60 mg PO HS 02/02/20 [History] Insulin Aspart (For Pump) [NovoLOG (For Pump)] 0 unit SQ-PUMP CONTINUOUS 02/02/20 [History] Cyanocobalamin (Vitamin B-12) [Vitamin B-12] 3,000 mcg PO DAILY 06/03/20 [History] Cholecalciferol [Vitamin D3 (25 Mcg = 1000 Iu)] 6,000 mcg PO DAILY 01/21/23 [History] Folic Acid 0.8 mg PO DAILY 01/21/23 [History] Prevacid (Unknown Dose) 1 dose PO DIRECTED PRN 01/21/23 [History] Vitamin A Acetate [Vitamin A] 3,000 mcg SL DAILY 01/21/23 [History] cycloSPORINE 0.05% OPHTH SOLN [Restasis] 1 applicator BOTH EYES DIRECTED 01/21/23 [History] [facility] [facility] [place] [place] [facility] [place] [facility]23 1:30 pm Patient Instructions/Handouts: *Surgery [facility] - (Anesthesia) Discharge Instructions Outpatient Surgery, Esophageal Dilation (DC) Discharge Disposition: HOME SELF-CARE
== END 2023-01-25 10:13 | disposition home or self-care (01) ==
LOC: ORWHC2ENDO 07:42
PROVIDERS: ATTEND Surgery Plastic and Reconstructive Surgery
DX: K22.2 Esophageal obstruction (principal); K21.9 Gastro-esophageal reflux disease without esophagitis; F32.A Depression, unspecified; M35.00 Sjogren syndrome, unspecified; F10.90 Alcohol use, unspecified, uncomplicated; F41.9 Anxiety disorder, unspecified; E11.9 Type 2 diabetes mellitus without complications; I26.99 Other pulmonary embolism without acute cor pulmonale; H57.9 Unspecified disorder of eye and adnexa; K76.9 Liver disease, unspecified; M19.90 Unspecified osteoarthritis, unspecified site; M06.9 Rheumatoid arthritis, unspecified; Z87.19 Personal history of other diseases of the digestive system; G62.9 Polyneuropathy, unspecified; K59.00 Constipation, unspecified; Z90.49 Acquired absence of other specified parts of digestive tract; Z98.51 Tubal ligation status; Z98.890 Other specified postprocedural states; Z79.4 Long term (current) use of insulin; Z80.3 Family history of malignant neoplasm of breast; Z88.5 Allergy status to narcotic agent; Z88.2 Allergy status to sulfonamides; Z88.1 Allergy status to other antibiotic agents; Z98.84 Bariatric surgery status; Z87.442 Personal history of urinary calculi
CPT/HCPCS: 43245; J2405; J2001; J2704; C1726

== ENCOUNTER → 2024-02-09 | Outpatient (CLI) | payer BC ==
[2024-02-09 16:43] VITALS: BP 129/70; PULSE 94; RESP 16; TEMP 97.5; BMI 25.3
--- NOTE | 2024-02-09 17:04 | P.BASOAP ---
Subjective Progress Note Date: 02/09/24 She was on Hgb A1c 10.8 to 6.8 and lost 22 pounds, to 184 to 162 pounds. She reports losing muscle mass. She has abdominal pain with obstruction. She needs stretch of the throat. She is taking pepcid as needed. She feels reflux on occasion. Epigastric pain. EGD with dilation. Objective - Vital Signs Vital signs: Vital Signs Temp 97.5 F L 02/09/24 16:33 Pulse 94 02/09/24 16:33 Resp 16 02/09/24 16:33 BP 129/70 02/09/24 16:33 Pulse Ox FiO2 Intake & Output 02/08/24 02/09/24 02/09/24 18:59 06:59 18:59 Weight 73.482 kg Assessment/Plan Plan: Date: 02/09/24 Initial Weight: 136.078 kg Initial BMI: 47.0 Current Weight: 73.482 kg Current BMI: 25.3 Type of Surgery: Total Volume in Band: Previous Volume: Volume Removed: Volume Added: Band Size:
== END ==
LOC: BARWHC3 15:19
PROVIDERS: ATTEND Surgery Plastic and Reconstructive Surgery
DX: E66.01 Morbid (severe) obesity due to excess calories (principal); Z88.2 Allergy status to sulfonamides; Z88.1 Allergy status to other antibiotic agents; Z88.8 Allergy status to other drugs, medicaments and biological substances; Z68.25 Body mass index [BMI] 25.0-25.9, adult
CPT/HCPCS: 99211

== ENCOUNTER → 2024-02-12 | Outpatient (CLI) | payer BC ==
[2024-02-12 12:33] LABS: INR 0.9 (<1.2); Partial Thromboplastin Time 21.9 sec (22.0-30.0); Prothrombin Time 9.7 sec (10.0-12.5)
[2024-02-12 22:55] LABS: HCT 42.5 % (37.2-46.3); HGB 13.4 g/dL (12.0-15.0); MCH 27.5 pg (27.0-32.0); MCHC 31.5 g/dL (32.0-37.0); MCV 87.3 FL (80.0-97.0); Mean Platelet Volume 10.9 FL (9.5-12.2); NRBC Per 100 WBC 0 X 10*3/uL (0.00-0.01); Platelet Count 406 X 10*3/uL (140-440); RBC 4.87 X 10*6/uL (4.10-5.20); RDW 14.3 % (11.5-14.5); WBC 8.03 X 10*3/uL (4.50-10.00)
[2024-02-12 23:15] LABS: Prealbumin 23.2 mg/dL (18.0-42.0)
[2024-02-12 23:35] LABS: % Iron Saturation 10.44 (12.00-45.00); ALT 14 U/L (8-44); AST 19 U/L (13-35); Albumin 4.6 g/dL (3.8-4.9); Albumin/Globulin Ratio 1.77 Ratio (1.60-3.17); Alkaline Phosphatase 190 U/L (41-126); BUN/Creat Ratio 11.33 Ratio (12.00-20.00); Blood Urea Nitrogen 13.6 mg/dL (9.0-27.0); Carbon Dioxide 21.4 mmol/L (21.6-31.8); Chloride 105 mmol/L (96-109); Chol/HDL Ratio 2.42 Ratio; Ferritin 22.9 ng/mL (10.0-291.0); Globulin 2.6 g/dL (1.6-3.3); Glucose 133 mg/dL (70-110); Iron 54 UG/DL (50-170); LDL Cholesterol,Calculated 113.1 mg/dL (0.0-131.0); Potassium 5.1 mmol/L (3.5-5.5); Sodium 143 mmol/L (135-145); Total Bilirubin 0.4 mg/dL (0.3-1.2); Total Iron Binding Capacity 517 UG/DL (228-460); Total Protein 7.2 g/dL (6.2-8.2); VLDL Calculation 14.12 mg/dL (5.00-40.00)
[2024-02-13 08:30] LABS: Magnesium 1.9 mg/dL (1.5-2.4); Phosphorus 4.8 mg/dL (2.4-5.1)
== END | disposition home or self-care (01) ==
LOC: LABWHC1 09:21
PROVIDERS: ATTEND Surgery Plastic and Reconstructive Surgery
DX: E66.01 Morbid (severe) obesity due to excess calories (principal); E89.1 Postprocedural hypoinsulinemia; D50.8 Other iron deficiency anemias; K91.2 Postsurgical malabsorption, not elsewhere classified; E44.0 Moderate protein-calorie malnutrition; E44.1 Mild protein-calorie malnutrition; E45 Retarded development following protein-calorie malnutrition; E55.9 Vitamin D deficiency, unspecified; K74.1 Hepatic sclerosis; N19 Unspecified kidney failure; T56.894A Toxic effect of other metals, undetermined, initial encounter; K50.90 Crohn's disease, unspecified, without complications
CPT/HCPCS: 36415; 80053; 80061; 82306; 82525; 82607; 82728; 82746; 83036; 83540; 83550; 83735; 83970; 84100; 84134; 84255; 84425; 84443; 84590; 84630; 85027; 85610; 85730